=== PATIENT | female | born 2000 | race Caucasian/White ===

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

== ENCOUNTER 2019-01-18 14:39 | Inpatient (IN) ==
--- OUTSIDE RECORDS SUMMARY | 2019-01-18 17:06 | External Medical Summary | Continuity of Care Document ---
:2000 Author Name Mike Johnston, Provider Address Unavailable Unavailable , Care Team Providers Name Role Phone Edgar Johnston, Bogdan Ann Unavailable [email or web address] Thiago Johnston Unavailable [email or web address] Rashawn GALLO Unavailable Unavailable Unavailable Unavailable Unavailable Problems Migraines (346.90) (G43.909) Post term over 40 weeks (645.10) (O48.0) Diet controlled gestational diabetes shant litus in third trimester (648.83) (O24.410) Supervision of young multigravida in third trimester (V23.84 ) (O09.623) Allergies and Adverse Reactions No Known Drug Allergies (Allergy) Medications Albuterol AERS Refills: 0 Dulera AERO Refills: 0 Pre- TABS Refills: 0 Ketostix In Vitro Strip; USE DIRECTED. Vickie Hernández Aug S. Start: 28-Jun-2017 Quantity: 1 100 Strip Box Refills: 11 OneTouch Delica Lancets Fine; Check 4x a day. Vickie Hernández Aug S. Start: 28-Jun-2017 Quantity: 1 100 Unit Box Refills: 5 OneTouch Verio In Vitro Strip; Check 4 x a day Nohemi Hernández Aug S. Start: 28-Jun-2017 Quantity: 3 50 Strip Box Refills: 5 Procedures Procedures not documented Immunizations Fluzone Quadrivalent 0.5 ML Intramuscular Suspension On: Apr-2017 11:41 Lot #: [id number], SANOFI PASTEUR Tdap (Adacel) On: 17-May-2017 13:52 Lot #: [id number], SANOFI PASTEUR Family History Mother Family history of thyroid disease (V18.19) (Z83.49) Status: Active Sister Family history of endometriosis (V19.8) (Z84.2) Status: Acti ve Unknown Family Member Family history of Down syndrome (V19.5) (Z82.79) Status: Act judy Comments: Other Plan of Treatment Planned Observations Planned Goals not documented Results No Known Results Results not documented Encounters Appointment; Lucia Rhoades M.D. 27-Sep-2017 14:00 Encounter Diagnosis: Problem not documented Appointment; OB SC1, Nonstress Test 09-Aug-2017 13:00 Encounter Diagnosis: Problem not documented Appointment; OB SC1, Nonstress Test 05-Aug-2017 9:00 Encounter Diagnosis: Problem not documented Appointment; Bobbi Das M.D. 03-Aug-2017 9:30 Encounter Diagnosis: Problem not documented Appointment; OB SC1, Nonstress Test 03-Aug-2017 9:00 Encounter Diagnosis: Problem not documented Appointment; Evin Frenandez M.D. 26-Jul-2017 10:20 Encounter Diagnosis: Problem not documented Appointment; James Knapp M.D. 20-Jul-2017 10:40 Encounter Diagnosis: Problem not documented Appointment; OBGYParvin WELSH2, Ultrasound 20-Jul-2017 10:00 Encounter Diagnosis: Problem not documented Appointment; James Knapp M.D. 14-Jul-2017 11:00 Encounter Diagnosis: Problem not documented Appointment; OBGYN ANITHA1, Ultrasound 14-Jul-2017 10:15 Encounter Diagnosis: Problem not documented Appointment; Evin Fernandez M.D. 07-Jul-2017 8:50 Encounter Diagnosis: Problem not documented Appointment; OBVIVIANA WELSH2, Ultrasound 07-Jul-2017 8:30 Encounter Diagnosis: Problem not documented Appointment; Elmira Covarrubias R.D. 28-Jun-2017 14:00 Encounter Diagnosis: Problem not documented Appointment; Adrianne Desai M.D. 28-Jun-2017 11:30 Encounter Diagnosis: Problem not documented Appointment; OB SC1, Nonstress Test 28-Jun-2017 11:00 Encounter Diagnosis: Problem not documented Appointment; James Knapp M.D. 14-Jun-2017 10:30 Encounter Diagnosis: Problem not documented Appointment; OBGYParvin WELSH1, Ultrasound 14-Jun-2017 10:15 Encounter Diagnosis: Problem not documented Appointment; Bobbi Das M.D. 02-Jun-2017 11:20 Encounter Diagnosis: Problem not documented Appointment; Susie Devine DO 17-May-2017 11:20 Encounter Diagnosis: Problem not documented Appointment; James Knapp M.D. 19-Apr-2017 11:20 Encounter Diagnosis: Problem not documented Appointment; Lucia Rhoades M.D. 22-Mar-2017 11:50 Encounter Diagnosis: Problem not documented Appointment; OBGYParvin SC1, Ultrasound 22-Mar-2017 11:00 Encounter Diagnosis: Problem not documented Appointment; James Knapp M.D. 17-Feb-2017 8:30 Encounter Diagnosis: Problem not documented Appointment; Lucia Rhoades M.D. 07-Feb-2017 12:20 Encounter Diagnosis: Problem not documented Appointment; Bobbi Das M.D. 10-Oct-2017 9:10 Encounter Diagnosis: Problem not documented
[2019-01-18] MEDS ORDERED: ONDANSETRON INJ 2 MG/ML 2 ML VIAL IV PRN (17:36)
[2019-01-18] MEDS ORDERED: ALUMINUM/MAGNESIUM SUSP 30 ML UDC PO PRN (17:36)
[2019-01-18] MEDS ORDERED: VANCOMYCIN CONSULT ACTIVE PRN (17:39)
[2019-01-18] MEDS ORDERED: VANCOMYCIN HCL 1,000 MG in SODIUM CHLORIDE 0.9% 250 ML IV SCH (17:45)
--- NOTE | 2019-01-18 18:02 | History & Physical Report ---
Date of Service January 18, 2019 Assessment & Plan (1) Pneumonia: This could be hospital-acquired due to her recent stay at [facility]. She will be treated with cefepime and vancomycin. She has not producing any sputum for culture. Present on Admission?: Yes (2) Status asthmaticus: Switch nebulizer treatments to arformoterol and budesonide. Continue intravenous Solu-Medrol. Consult pulmonary medicine Present on Admission?: Yes (3) Depression: Resume previous medications at discharge (4) DVT prophylaxis: Lovenox subcu History of Present Illness Chief Complaint: Nonproductive cough, wheezing Primary Care Provider: NO PCP 18-year-old female with asthma hospitalized at [facility] on January 15 with status asthmaticus and suspected bronchitis. She was initially treated with a azithromycin and switch to Levaquin and doxycycline. She has not producing any sputum and sputum culture was not done. She did not improve and she had a CT scan today which was negative for PE but shows evidence of infiltrate in the left lingula area and left lower lobe. This could be hospital-acquired pneumonia. Family requested transfer to [facility] for further care. Pulmonary medicine consultation will be requested and she will be treated with cefepime and vancomycin. Nebulizer treatments will be switched to arformoterol and budesonide. She will continue with intravenous Solu-Medrol. It is assumed her leukocytosis is due to steroid therapy. She is not hypoxic on room air but remains on low-flow oxygen by nasal cannula. 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 Beliefs That Will Affect Care: None Current Living Situation: Family Other Information That Helps Us Care for You: No Feels Safe at Home: Yes Smoking Status: Never smoker Do You Dip or Chew Tobacco: No Second Hand Ex posure: No Hx Alcohol Use: No Hx Substance Use: No Review of Systems Review of Systems: Constitutional-no fever or chills ENT-no blurred vision, no double vision, no epistaxis, no sore throat Respiratory-nonproductive cough, wheezing, shortness of breath Cardiac-no palpitations, no chest pain, no syncope GI-no nausea, vomiting, diarrhea, melena, hematochezia -no urinary retention, no urinary incontinence, no dysuria, no hematuria Musculoskeletal-no joint pain, no muscle tenderness Skin-no bruising, no rashes, no pruritus Neuro-no isolated weakness, no paresthesia, no weakness Psych-no depression, no anxiety Physical Exam Physical Exam: General-alert and oriented x3, no fevers, no chills HEENT-head atraumatic and normocephalic, TMs intact bilaterally, pupils equal and reactive to light, extraocular muscles intact Neck-no lymphadenopathy or thyromegaly, trachea midline Chest-scattered bilateral rhonchi. End expiratory wheezes bilaterally. No dullness to percussion Cardiac-regular rate and rhythm, normal S1 and S2, no murmurs Abdomen-normal bowel sounds, nontender, no hepatosplenomegaly Extremities-no cyanosis, clubbing, or edema Neuro-cranial nerves II through XII intact, motor and sensory function within normal limits, strength symmetrical 5/5, no focal deficits Psych-normal affect, normal mood Results & Data Vital Signs (Past 12 Hours) Vital Signs Temp Pulse Resp BP Pulse Ox 01/18/19 16:59 36.8 C 88 24 128/84 95 PG Care Time/CCT Total # of Minutes Spent Total Time Spent with Patient: Total time spent is greater than 50% in coordination of care (as documented) at patient's floor/unit and/or counseling patient:
[2019-01-18] MEDS ORDERED: VANCOMYCIN HCL 1,750 MG in SODIUM CHLORIDE 0.9% 500 ML IV SCH (18:15)
[2019-01-18] MEDS: methylPREDNISolone 40 MG in SYRINGE 0 ML IV SCH (18:18)
[2019-01-18] MEDS: CEFEPIME 1,000 MG in SYRINGE 0 ML IV SCH (18:18)
[2019-01-18 18:44] LABS: Creatinine Clr Calc Pharmacy 113.9 ml/min; Est GFR (African American) 135.2; Est GFR (Non-African American) 116.6
[2019-01-18] MEDS: ARFORMOTEROL TART 15MCG/2ML VIAL INH SCH (19:05)
[2019-01-18] MEDS: BUDESONIDE 0.5 MG/2 ML VIAL (PULMICORT) NEB SCH (19:05)
[2019-01-18] MEDS: ACETAMINOPHEN 325 MG TAB PO PRN (19:48)
--- NOTE | 2019-01-18 20:51 | Pharmacy Report ---
Pharmacy Abx Initial Consult - Date of Service January 18, 2019 - Pharmacy Dosing Scope Date of Consult: 01/18/19 Consultation requested by: Dr. Green Pharmacy is consulted to initiate Vancomycin IV dosing therapy, order appropriate labs and adjust drug dose/frequency. - Subjective The patient is a 18 year old F admitted on 01/18/19 17:01. - Objective Height: 5 ft 3 in Weight: 70.1 kg (BMI 1.77) Vital Signs (Past 12hrs): Vital Signs Temp Pulse Pulse Resp BP BP Pulse Ox 01/18/19 19:08 74 20 96 01/18/19 19:00 81 24 114/77 96 01/18/19 18:50 36.8 C 83 18 114/77 96 01/18/19 18:00 01/18/19 16:59 36.8 C 88 24 128/84 95 Pulse Ox 01/18/19 19:08 01/18/19 19:00 01/18/19 18:50 01/18/19 18:00 94 01/18/19 16:59 Lab Results (24hrs): Laboratory Tests (24 Hours) 01/18/19 18:03 Creatinine 0.74 Est Cr Clr Drug Dosing 113.9 - Risk Factors for Resistance * Hospitalization for 48 hours or more within the past 90 days * Antimicrobial use within the last 90 days Zithromax/Levaquin/Doxycycline - Assessment & Plan Assessment 18 year old F with asthma admitted @ [facility] 01/15/19 with status asthmaticus and suspected bronchitis. Initially treated with with Zithromax then switched to Levaquin and Doxycycline. Has not been producing any sputum so sputum culture was not done. She was not improving so family requested transfer to [facility]. CT today shows evidence of infiltrate in left lingula area and left lower lobe. Questionable hospital acquired pneumonia Plan Vancomcyin for treatment of Pneumonia Vancomycin IV * Estimated PK Parameters: Vd 0.7 L/kg, Felton 0.098 hr-1, t1/2 7.1 hr * Loading dose: 1750 mg (~25 mg/kg) * Maintenance dose: 1000 mg IV (~ 14.3 mg/kg) every 8 hours * Goal trough level for pneumonia : 15 to 20 mcg/mL * Trough level ordered for 01/20/19 @ 0130 Pharmacy will continue to follow and will adjust dose/frequency as necessary. Thank you.
[2019-01-18 23:09] LABS: Hematocrit (blood only) 34.7 % (37-47); Hemoglobin 11.3 g/dL (12.0-16.0); Mean Corpuscular Hgb Conc 32.6 g/dL (32-36); Mean Corpuscular Volume 84.2 fL (80-100); Mean Platelet Volume 10.1 fL (7.4-10.4); Platelet Count 289 K/uL (130-400); RDW Coefficient of Variation 14.2 % (11.5-14.5); RDW Standard Deviation 44.2 fL (36.4-46.3); Red Blood Count 4.12 M/uL (4.2-5.4); White Blood Count 20.26 K/uL (4.8-10.8)
[2019-01-18 23:21] LABS: INR 1.1 (0.9-1.1); Prothrombin Time 11.1 Seconds (9.0-12.0)
[2019-01-19] MEDS: VANCOMYCIN HCL 1,000 MG in SODIUM CHLORIDE 0.9% 250 ML IV SCH ×2 (01:41→09:36)
[2019-01-19] MEDS: CEFEPIME 1,000 MG in SYRINGE 0 ML IV SCH ×2 (01:41→09:29)
[2019-01-19] MEDS: methylPREDNISolone 40 MG in SYRINGE 0 ML IV SCH ×3 (01:41→18:12)
[2019-01-19] MEDS ORDERED: ALBUT/IPRATROP 3MG/0.5MG NEB 3 ML VIAL NEB STA (04:51)
--- NOTE | 2019-01-19 05:03 | Progress Note ---
Date of Service January 19, 2019 Subjective RN called regarding increased respiratory rate around 4:50am chart reviewed Pt evaluated: reported difficulty breathing EXAM: diminished breath sounds with diffuse rhonchi and mild expiratory wheezing appreciated, mild respiratory distress Plan: duoneb x 1 ordered; started on uriah Q4H duoneb treatments Results & Data Vital Signs (Past 12 Hours) Vital Signs Temp Pulse Pulse Resp BP BP Pulse Ox 01/19/19 04:57 67 28 H 99 01/19/19 04:42 36.5 C 66 30 H 110/67 95 01/18/19 23:02 36.7 C 76 16 105/65 98 01/18/19 20:00 81 01/18/19 19:08 74 20 96 01/18/19 19:00 81 24 114/77 96 01/18/19 18:50 36.8 C 83 18 114/77 96 01/18/19 18:00 Pulse Ox 01/19/19 04:57 01/19/19 04:42 01/18/19 23:02 01/18/19 20:00 01/18/19 19:08 01/18/19 19:00 01/18/19 18:50 01/18/19 18:00 94 PG Care Time/CCT Total # of Minutes Spent Total Time Spent with Patient: Total time spent is greater than 50% in coordination of care (as documented) at patient's floor/unit and/or counseling patient: Resident Activity Tracking Resident Involvement: Resident Care Provided Care Provided: Adult Hospital Medicine
[2019-01-19 06:11] LABS: Hematocrit (blood only) 35.6 % (37-47); Hemoglobin 11.3 g/dL (12.0-16.0); Mean Corpuscular Hgb Conc 31.7 g/dL (32-36); Mean Corpuscular Volume 84.2 fL (80-100); Mean Platelet Volume 10.1 fL (7.4-10.4); Platelet Count 286 K/uL (130-400); RDW Coefficient of Variation 14.2 % (11.5-14.5); Red Blood Count 4.23 M/uL (4.2-5.4); White Blood Count 18.65 K/uL (4.8-10.8)
[2019-01-19 06:36] LABS: Basophils # (auto) 0.03 K/uL (0-0.2); Basophils % (auto) 0.2 %; Eosinophils # (auto) 0.01 K/uL (0-0.5); Eosinophils % (auto) 0.1 %; Immature Granulocytes # (auto) 1.02 K/uL (0.00-0.02); Immature Granulocytes % (auto) 5.5 %; Lymphocytes # (auto) 1.51 K/uL (1.2-3.4); Lymphocytes % (auto) 8.1 %; Monocytes # (auto) 0.69 K/uL (0.11-0.59); Monocytes % (auto) 3.7 %; Neutrophils # (auto) 15.39 K/uL (1.4-6.5); Neutrophils % (auto) 82.4 %; RBC Morphology Unremarkable
[2019-01-19 06:40] LABS: BUN Creatinine Ratio 23.1 (10-20); Blood Urea Nitrogen 13 mg/dl (7-18); Calcium 8.4 mg/dl (8.5-10.1); Carbon Dioxide 27 mmol/L (21-32); Chloride 107 mmol/L (98-107); Creatinine Clr Calc Pharmacy 146.6 ml/min; Est GFR (African American) > 150.0; Est GFR (Non-African American) 132.7; Glucose 125 mg/dl (70-99); Sodium 139 mmol/L (136-145)
[2019-01-19] MEDS: ARFORMOTEROL TART 15MCG/2ML VIAL INH SCH ×2 (07:10→20:00)
[2019-01-19] MEDS: ALBUT/IPRATROP 3MG/0.5MG NEB 3 ML VIAL NEB SCH ×5 (07:10→23:26)
[2019-01-19] MEDS: BUDESONIDE 0.5 MG/2 ML VIAL (PULMICORT) NEB SCH (07:10)
[2019-01-19] MEDS ORDERED: PNEUMOCOCCAL POLYSACCHARIDES 25 MCG/0.5 ML VIAL/SYR IM ONE (08:00)
[2019-01-19] MEDS ORDERED: PNEUMOCOCCAL ADMINISTRATION CHARGE ONE (08:00)
[2019-01-19] MEDS: ENOXAPARIN INJ 40 MG/0.4 ML SYR SQ SCH (09:29)
[2019-01-19] MEDS: ACETAMINOPHEN 325 MG TAB PO PRN (09:35)
[2019-01-19] MEDS ORDERED: SODIUM CHLORIDE 0.9% 1000ML 1,000 ML IV SCH (10:30)
--- NOTE | 2019-01-19 11:09 | XRay Report ---
XR chest 2V routine CLINICAL HISTORY: pneumonia dyspnea COMPARISON STUDY: CT chest 01/17/2019 FINDINGS: Small parenchymal infiltrate posterior costophrenic angle. This potentially is within the r ight lower lobe. Mid and upper lungs are considered clear. Heart is top normal in terms of size. IMPRESSION: Small parenchymal infiltrate posterior costophrenic angle, most likely within the right lower lobe. The above report was generated using voice recognition software. It may contain grammatical, syntax or spelling errors. Electronically signed by: Abhijit Marie M.D. 01/19/2019 11:08 AM
--- NOTE | 2019-01-19 13:25 | Family Medicine Progress Note ---
Date of Service January 19, 2019 Assessment & Plan (1) Pneumonia: 18yo female with a Hx of mild-moderate asthma presenting as a transfer from [facility] after presenting in status asthmaticus, and was found to have a pneumonia. Pneumonia -repeat chest xray obtained: shows RLL infiltrate -treating for HAP with Cefepime 2g for 7 days -vanc stopped as pt MRSA negative. -will continue to monitor Asthma -stable -Pt requiring continued oxygen use -continue arfomoterol, budesonide and IV solumedrol -Singulair qhs added -Will continue to trend K+ due to albuterol use. -pulm consult appreciated Depression -Hold home meds DVT prophylaxis: Lovenox subQ FEN/GI: Regular, fluid bolus CODE STATUS: full Supervising Physician Co-Signing Physician Notes ATTENDING I saw the patient with the resident and confirmed the history and physical exam. I also spoke with the patient's father and reviewed OSH records to obtain collateral information. I also discussed care with pulmonary and critical care consultants. This morning, the patient is tachypnic and speaks in a soft voice, completing a full, albeit short sentence before pausing. Her HR is 70-80s lying down, but she becomes tachycardic when she sits up for the lung exam. She is afebrile. SPO2 around 96-98% on 2 lpm NC. No cough appreciated. She has fair air exchange, with end-exp wheeze. Upon re-examination later today, her work of breathing is increased. She has increased dyspnea with conversation. After discussion with pulmonary medicine, the decision is made to move the patient to the ICU. Asthma, acute flare Increase steroids. Rocephin and Zithromax Continue Nebs Transfer to ICU Tachycardia Given recent history, suspect she is moderately volume depleted IVF added this morning Subjective Pt states she has had asthma all her life, with dad present in the room stating that she would have exacerbations about 2 times max a year. Has never been intubated or hospitalized but has made previous ED visits where her symptoms would improve after administration of steroids. Has a history of alergic rhinitis currently as well as 2 young children at home who are currently sick. Denies recent travel. Has previously managed her asthma with just albuterol before. Has significant SOB today both at rest and with exertion, some chest pain, nausea, palpitations, no fevers however. Review of Systems Review of Systems: All systems reviewed & are unremarkable except as noted in HPI & below Physical Exam Physical Exam: General: Alert, oriented. Mild distress. HEENT: NC/AT, PERRLA, EOMI, oropharynx moist. NC in nares Chest: Nontender to palpation. CV: RRR, Normal s1, s2. No murmurs appreciated Resp: Breath sounds coarse bilaterally but with good air movement. No wheezing appreciated. Abdomen: Soft, nontender, nondistended. No guarding. No organomegaly appreciated. Extremities: No edema. Results & Data Vital Signs (Past 12 Hours) Vital Signs Temp Pulse Resp BP Pulse Ox 01/19/19 07:38 36.6 C 78 17 108/51 L 95 01/19/19 07:12 62 18 98 01/19/19 04:57 67 28 H 99 01/19/19 04:42 36.5 C 66 30 H 110/67 95 01/18/19 23:02 36.7 C 76 16 105/65 98 Laboratory Results Laboratory Results - last 24 hr 01/18/19 01/18/19 01/18/19 04:41 04:41 18:03 WBC 20.26 H RBC 4.12 L Hgb 11.3 L Hct 34.7 L MCV 84.2 MCH 27.4 MCHC 32.6 RDW Std Deviation 44.2 RDW Coeff of Kam 14.2 Plt Count 289 MPV 10.1 Immature Gran % (Auto) Neut % (Auto) Lymph % (Auto) [place] % (Auto) Eos % (Auto) Baso % (Auto) Immature Gran # (Auto) Neut # (Auto) Lymph # (Auto) [place] # (Auto) Eos # (Auto) Baso # (Auto) RBC Morphology PT 11.1 INR 1.1 Sodium Potassium Chloride Carbon Dioxide Anion Gap BUN Creatinine 0.74 Est Cr Clr Drug Dosing 113.9 Est GFR ( Amer) 135.2 Est GFR (Non-Af Amer) 116.6 BUN/Creatinine Ratio Glucose Calcium Nasal Screen MRSA (PCR) 01/18/19 01/19/19 01/19/19 18:30 05:57 05:57 WBC 18.65 H RBC 4.23 Hgb 11.3 L Hct 35.6 L MCV 84.2 MCH 26.7 MCHC 31.7 L RDW Std Deviation 44.0 RDW Coeff of Kam 14.2 Plt Count 286 MPV 10.1 Immature Gran % (Auto) 5.5 Neut % (Auto) 82.4 Lymph % (Auto) 8.1 [place] % (Auto) 3.7 Eos % (Auto) 0.1 Baso % (Auto) 0.2 Immature Gran # (Auto) 1.02 H Neut # (Auto) 15.39 H Lymph # (Auto) 1.51 [place] # (Auto) 0.69 H Eos # (Auto) 0.01 Baso # (Auto) 0.03 RBC Morphology Unremarkable PT INR Sodium 139 Potassium 4.0 Chloride 107 Carbon Dioxide 27 Anion Gap 5.0 BUN 13 Creatinine 0.58 L Est Cr Clr Drug Dosing 146.6 Est GFR ( Amer) > 150.0 Est GFR (Non-Af Amer) 132.7 BUN/Creatinine Ratio 23.1 H Glucose 125 H Calcium 8.4 L Nasal Screen MRSA (PCR) Negative Medications Administered Home Medications Sertraline HCl 50 mg PO QAM 30 Days #30 tab 08/11/17 [Rx Confirmed 01/18/19] albuterol sulfate 2 puff INHALATION QID PRN 01/18/19 [History Confirmed 01/18/19] topiramate [Topamax] 100 mg PO HS 01/18/19 [History Confirmed 01/18/19] Active Medications Acetaminophen (Tylenol) 650 mg PO Q4H PRN PRN Reason: Pain or Fever Stop: 02/17/19 17:35 Last Admin: 01/19/19 09:35 Dose: 650 mg Documented by: Al Hydrox/Mg Hydrox/Simethicone (Maalox) 15 ml PO Q4H PRN PRN Reason: Dyspepsia Stop: 02/17/19 17:35 Albuterol (Duoneb) 3 ml NEB Q4R YAN Stop: 02/18/19 07:59 Last Admin: 01/19/19 11:07 Dose: Not Given Documented by: Arformoterol Tartrate (Brovana Neb) 15 mcg INH BIDR YAN Stop: 02/17/19 19:59 Last Admin: 01/19/19 07:10 Dose: 15 mcg Documented by: Budesonide (Pulmicort Respules) 0.5 mg NEB BIDR YAN Stop: 02/17/19 19:59 Last Admin: 01/19/19 07:10 Dose: 0.5 mg Documented by: Enoxaparin Sodium (Lovenox) 40 mg SQ Q24H YAN Stop: 02/18/19 08:59 Last Admin: 01/19/19 09:29 Dose: 40 mg Documented by: Methylprednisolone 40 mg/ (Syringe) 0.64 mls @ 1.5 mls/min IV Q8H YAN Stop: 02/17/19 17:59 Last Admin: 01/19/19 09:32 Dose: 1.5 mls/min Documented by: Cefepime HCl 2,000 mg/ Syringe 22.6 mls @ 5.5 mls/min IV Q8H [facility]; Protocol Stop: 01/24/19 10:05 Montelukast Sodium (Singulair) 10 mg PO HS YAN Stop: 02/18/19 20:59 Ondansetron HCl (Zofran) 4 mg IV Q6H PRN PRN Reason: Nausea Stop: 02/17/19 17:35 Resident Activity Tracking Resident Involvement: Resident Care Provided Care Provided: Adult Hospital Medicine
--- NOTE | 2019-01-19 17:40 | Critical Care Consultation ---
Date of Consultation January 19, 2019 Assessment & Plan (1) Admitted to intensive care unit: Reason Critically Ill: Reanna is a 18 year old female with a history of asthma, migraines, seasonal allergies and depression who was transferred from [facility] on 01/18 due to status asthmaticus. She remains tachycardic and dyspneic at rest, and the ICU team was consulted for further management. Neuro: -no neurological deficits identified Cardiac: -no history of cardiac disease -sinus tachycardia -> likely secondary to status asthmaticus -> pt had CTA to rule out PE on 01/17 Respiratory: -status asthmaticus -> currently receiving arformoterol nebs BID, as well as duonebs q4h scheduled -> IV steroids increased to 80mg IV solumedrol q8h -> d/c budesonide nebs given systemic steroids -> appears markedly dyspneic on 2L of oxygen via nasal cannula -> bedside peak flow was 150 -> 2g of magnesium sulfate ordered -> consider NPPV if patient does not improve -pneumonia -> seen on CXR on 01/19 -> initially treated with cefepime and vancomycin. Vancomycin was d/kisha given negative MRSA swab. Will change abx from cefepime to rocephin & azithromycin, low concern for pseudomonal infection -> pulmonary following -> ordered legionella and mycoplasma titers GI: -regular diet ordered RENAL/LYTES: -creatinine normal at 0.58, electrolytes WNL : -no santacruz catheter in place ENDO: -no history of diabetes or thyroid disease -ICU hyperglycemic protocol ordered HEME: -H&H stable ID: -pneumonia -> seen in RLL on CXR -> continue IV rocephin and azithromycin -> elevated WCC on admission likely secondary to steroids LINES/IV ACCESS: PIV x2 CODE STATUS: FULL DVT PROPHYLAXIS: Lovenox 40mg SQ q24h Thank you for allowing us to participate in the care of this patient. Please refer to my attending physician's documentation for any further recommendations. (2) Pneumonia: (3) Status asthmaticus: (4) Depression: (5) DVT prophylaxis: Supervising Physician Co-Signing Physician Notes Dr. Casanova was resident physician during care of patient. I separately evaluated patient for dickey portions of the history and the exam. I was present during the critical portion of medical decision making, and I discussed the case with the resident. I generally agree with the findings and plan. Significantly decreased peak flow. Requiring supplemental oxygen. Diagnosis of status asthmaticus requiring multimodality approach including IV steroids with acute hypoxic respiratory failure I have personally spent 40 minutes of critical care time in the direct management of this patient. This is a life/limb threatening event. This includes time spent evaluating patient, direct bedside care, chart review, placing orders, interpretation of diagnostic studies, discussion with consultants, patient, and/or family members regarding treatment decisions, as well as other required patient management activities. This time is exclusive of all separately billable procedures, and teaching time and separate from and in addition to any other critical care service time. History of Present Illness Reason for Consultation: Status Asthmaticus Requesting Physician: Dr. Cortes Attending Physician: Dr. Krishnamurthy History of Present Illness Reanna is a 18 year old female with a history of asthma, migraines, seasonal allergies and depression who was transferred from [facility] on 01/18 due to status asthmaticus. Despite medical therapy, she remains tachycardic and is now dyspneic at rest, and therefore ICU team was consulted for further management. Reanna reports her symptoms began approximately one week ago with URI symptoms. She notes that 2 days prior to her presentation to [facility] on 01/15, she developed shortness of breath. She used her rescue inhaler at home, as well as nebulizers, but these did not improve her symptoms. She saw her PCP on the day of her admission who prescribed her a z-pack and a tapering course of prednisone. Later that day, she developed subjective fever, chills, vomiting x3, and felt her symptoms were overall worsening, prompting her to present to [facility]. Reanna states that her asthma is generally well controlled. She does not have a maintenance inhaler, and only requires the use of her albuterol inhaler every few weeks or so. At baseline, she states she does not have chest pressure or shortness of breath with exertion. She states she has never been hospitalized for an asthma exacerbation before, and has not required intubation for an exacerbation before. She states she has exacerbations once or twice a year, and would typically receive steroids from the emergency department for this. Her last exacerbation was approximately 6 months ago. At the time of my exam, she was markedly dyspneic at rest. She states she feels like her symptoms have worsened since she came into the hospital. She reports chest pressure, shortness of breath with conversation, wheezing, and difficulty sitting up or getting out of bed due to shortness of breath. She states she is coughing frequently, and that her cough is not productive. She denies any recent fever or chills. She is not a smoker. 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 Beliefs That Will Affect Care: None Current Living Situation: Family Other Information That Helps Us Care for You: No Feels Safe at Home: Yes Smoking Status: Never smoker Do You Dip or Chew Tobacco: No Second Hand Exposure: No Hx Alcohol Use: No Hx Substance Use: No Review of Systems Constitutional: + fatigue; no fever and no chills Respiratory: + cough, + dyspnea and + wheezing; no sputum production Cardiovascular: + chest pain (pressure more-so than pain), + dyspnea at rest and + dyspnea on exertion; no palpitations, no lightheadedness, no edema and no calf pain Gastrointestinal: no abdominal pain, no nausea, no vomiting and no change in bowel habits Genitourinary: no dysuria, no difficulty urinating and no urinary frequency Physical Exam Constitutional: WD/WN, vitals as above average body habitus and cooperative on 2L of oxygen via nasal cannula ENMT: external ear and nose normal, oropharynx normal Respiratory: + tachypneic; + not able to speak in complete sentence Auscultation: + diminished lung sounds and + wheezes dyspneic with conversation Cardiovascular: Rate/Rhythm: regular rhythm and + tachycardic (worsens with leaning forward) Vessels: radial pulses present Extremities: no calf tenderness and no pedal edema tenderness to palpation over left side of chest Gastrointestinal (Abdomen): Percussion/Palpation: abdomen soft; abdomen nontender, no guarding and abdomen not rigid Skin: no rashes, warm and dry Neurologic: moves all extremities and awake; no focal motor deficits Psychiatric: A+Ox3, euthymic affect Results & Data Vital Signs (Past 12 Hours) Vital Signs Temp Pulse Resp BP Pulse Ox 01/19/19 15:24 65 16 97 01/19/19 15:04 36.8 C 95 H 18 122/69 96 01/19/19 11:38 36.6 C 104 H 19 112/68 93 01/19/19 07:38 36.6 C 78 17 108/51 L 95 01/19/19 07:12 62 18 98 Resident Activity Tracking Resident Involvement: Resident Care Provided Care Provided: Adult Hospital Medicine
[2019-01-19] MEDS ORDERED: CEFEPIME 2,000 MG in SYRINGE 0 ML IV SCH (18:00)
[2019-01-19] MEDS: AZITHROMYCIN 500 MG in DEXTROSE 5% 250 ML IV SCH (20:28)
[2019-01-19] MEDS: MAGNESIUM SULFATE / D5W 1 GM/100 ML BAG IV SCH ×2 (20:29→20:45)
[2019-01-19] MEDS: MONTELUKAST SODIUM 10 MG TABLET PO SCH (22:06)
[2019-01-19] MEDS: methylPREDNISolone 80 MG in SYRINGE 0 ML IV SCH (22:06)
[2019-01-19] MEDS: cefTRIAXone SODIUM 1,000 MG in DEXTROSE 5% 50 ML IV SCH (22:06)
[2019-01-20] MEDS ORDERED: VANCOMYCIN TROUGH ONE (01:30)
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
[2019-01-20] MEDS: ALBUT/IPRATROP 3MG/0.5MG NEB 3 ML VIAL NEB SCH ×6 (03:51→23:10)
[2019-01-20 04:29] LABS: Hematocrit (blood only) 36.9 % (37-47); Mean Corpuscular Hgb Conc 32.5 g/dL (32-36); Mean Corpuscular Volume 83.5 fL (80-100); Platelet Count 284 K/uL (130-400); RDW Coefficient of Variation 13.8 % (11.5-14.5); RDW Standard Deviation 42.2 fL (36.4-46.3); Red Blood Count 4.42 M/uL (4.2-5.4); White Blood Count 17.24 K/uL (4.8-10.8)
[2019-01-20 04:45] LABS: BUN Creatinine Ratio 19.6 (10-20); Creatinine Clr Calc Pharmacy 130.8 ml/min; Est GFR (African American) 148.1; Est GFR (Non-African American) 127.8; Potassium 3.8 mmol/L (3.5-5.1)
[2019-01-20 04:56] LABS: Basophils # (auto) 0.05 K/uL (0-0.2); Basophils % (auto) 0.3 %; Immature Granulocytes # (auto) 1.56 K/uL (0.00-0.02); Lymphocytes # (auto) 1.75 K/uL (1.2-3.4); Lymphocytes % (auto) 10.2 %; Monocytes % (auto) 3.5 %; Neutrophils # (auto) 13.28 K/uL (1.4-6.5)
[2019-01-20] MEDS: methylPREDNISolone 80 MG in SYRINGE 0 ML IV SCH ×3 (05:46→21:04)
[2019-01-20] MEDS: ARFORMOTEROL TART 15MCG/2ML VIAL INH SCH ×2 (06:57→18:57)
--- NOTE | 2019-01-20 07:02 | XRay Report ---
XR chest 1V portable CLINICAL HISTORY: lingular pneumonia COMPARISON STUDY: Chest CT January 17, 2019. Chest radiograph January 19, 2019. FINDINGS: There is no pneumothorax. There are trace bilateral pleural effusions. Mild bibasilar opaci ties persist. There is no evidence for pulmonary edema. Cardiomediastinal silhouette is normal. IMPRESSION: No change in trace bilateral pleural effusions and bibasilar opacities which may reflect pneumonia or atelectasis. Electronically signed by: Rashid Haque M.D. 01/20/2019 7:01 AM
[2019-01-20] MEDS: ENOXAPARIN INJ 40 MG/0.4 ML SYR SQ SCH (08:31)
--- NOTE | 2019-01-20 09:50 | Critical Care Progress Note ---
Date of Service January 20, 2019 Assessment & Plan (1) Admitted to intensive care unit: Reason Critically Ill: Reanna is a 18 year old female with status asthmaticus Neuro: -no neurological deficits identified Cardiac: -no history of cardiac disease -sinus tachycardia: Improving -> likely secondary to status asthmaticus -> pt had CTA to rule out PE on 01/17 Respiratory: -status asthmaticus -> currently receiving arformoterol nebs BID, as well as duonebs q4h scheduled -Continue scheduled nebs -> IV steroids increased to 80mg IV solumedrol q8h -Continue steroids as given minimal improvement -> d/c budesonide nebs given systemic steroids -> appears markedly dyspneic on 2L of oxygen via nasal cannula -> bedside peak flow was approximately to 25 -> 2g of magnesium sulfate ordered -> consider NPPV if patient does not improve -pneumonia -> seen on CXR on 01/19 -> initially treated with cefepime and vancomycin. Vancomycin was d/kisha given negative MRSA swab. Will change abx from cefepime to rocephin & azithromycin, low concern for pseudomonal infection -> pulmonary following -> ordered legionella and mycoplasma titers GI: -regular diet ordered RENAL/LYTES: -creatinine normal at 0.58, electrolytes WNL : -no santacruz catheter in place ENDO: -no history of diabetes or thyroid disease -ICU hyperglycemic protocol ordered HEME: -H&H stable ID: -pneumonia -> seen in RLL on CXR -> continue IV rocephin and azithromycin -> elevated WCC on admission likely secondary to steroids LINES/IV ACCESS: PIV x2 Activity: Ad stefani. CODE STATUS: FULL DVT PROPHYLAXIS: Lovenox 40mg SQ q24h Patient still has an oxygen requirement and significant reactive airway disease with less than 50% of her expected peak flow. Subjectively improved from yesterday very minimally objectively improved continue high intensity treatments. I have personally spent 40 minutes of critical care time in the direct management of this patient. This is a life/limb threatening event. This includes time spent evaluating patient, direct bedside care, chart review, placing orders, interpretation of diagnostic studies, discussion with consultants, patient, and/or family members regarding treatment decisions, as well as other required patient management activities. This time is exclusive of all separately billable procedures, and teaching time and separate from and in addition to any other critical care service time. (2) Pneumonia: (3) Status asthmaticus: (4) Depression: (5) DVT prophylaxis: (6) Acute respiratory failure with hypoxia: Subjective Feels subjectively better than yesterday, desires to sit up and walk around, still dyspneic with moderate activity. Review of Systems Review of Systems: No chest pain, positive shortness of breath, negative nause a negative vomiting Physical Exam Physical Exam: General: Alert. nontoxic. Skin: Warm, dry, Head: Atraumatic Ears, nose, mouth and throat: airway patent Cardiovascular: Normal peripheral perfusion Respiratory: No accessory muscle use, no respiratory distress, significantly prolonged JEFFREY ratio Gastrointestinal: Non distended Musculoskeletal: No deformity Peak flows: 250, 150, 200 with good effort Results & Data Vital Signs (Past 12 Hours) Vital Signs Temp Pulse Pulse Resp BP BP Pulse Ox 01/20/19 09:13 124/58 L 01/20/19 09:00 93 H 17 95 01/20/19 08:00 36.7 C 93 H 37 H 96 01/20/19 07:00 86 23 99 01/20/19 06:00 64 14 101/44 L 98 01/20/19 04:00 36.5 C 78 19 116/60 97 01/20/19 03:51 72 16 95 01/20/19 02:00 62 17 100/60 96 01/20/19 00:00 36.6 C 68 17 103/53 L 95 01/19/19 23:26 83 18 97 01/19/19 23:01 67 21 101/50 L 97 01/19/19 23:00 61 19 97 01/19/19 22:01 83 19 116/75 97 01/19/19 22:00 86 20 97 Laboratory Results 01/20/19 01/20/19 01/20/19 Range/Units 06:45 04:11 04:11 WBC (4.8-10.8) K/uL RBC (4.2-5.4) M/uL Hgb (12.0-16.0) g/dL Hct (37-47) % MCV (80-100) fL MCH (25-34) pg MCHC (32-36) g/dL RDW Std Deviation (36.4-46.3) fL RDW Coeff of Kam (11.5-14.5) % Plt Count (130-400) K/uL MPV (7.4-10.4) fL Immature Gran % (Auto) % Neut % (Auto) % Lymph % (Auto) % [place] % (Auto) % Eos % (Auto) % Baso % (Auto) % Immature Gran # (Auto) (0.00-0.02) K/uL Neut # (Auto) (1.4-6.5) K/uL Lymph # (Auto) (1.2-3.4) K/uL [place] # (Auto) (0.11-0.59) K/uL Eos # (Auto) (0-0.5) K/uL Baso # (Auto) (0-0.2) K/uL Sodium 139 (136-145) mmol/L Potassium 3.8 (3.5-5.1) mmol/L Chloride 106 (98-107) mmol/L Carbon Dioxide 27 (21-32) mmol/L Anion Gap 6.0 (3-11) BUN 13 (7-18) mg/dl Creatinine 0.65 (0.6-1.2) mg/dl Est Cr Clr Drug Dosing 130.8 ml/min Est GFR ( Amer) 148.1 Est GFR (Non-Af Amer) 127.8 BUN/Creatinine Ratio 19.6 (10-20) Glucose 130 H (70-99) mg/dl Calcium 8.0 L (8.5-10.1) mg/dl Nasal Screen MRSA (PCR) (Negative) Vancomycin Trough 2.1 (See Comment) mcg/ml L.pneumophila IgM Ab Urine Legionella Ag Pending Mycoplasma pneumon IgG Mycoplasma pneumon IgM 01/20/19 01/19/19 01/19/19 Range/Units 04:11 20:18 18:50 WBC 17.24 H (4.8-10.8) K/uL RBC 4.42 (4.2-5.4) M/uL Hgb 12.0 (12.0-16.0) g/dL Hct 36.9 L (37-47) % MCV 83.5 (80-100) fL MCH 27.1 (25-34) pg MCHC 32.5 (32-36) g/dL RDW Std Deviation 42.2 (36.4-46.3) fL RDW Coeff of Kam 13.8 (11.5-14.5) % Plt Count 284 (130-400) K/uL MPV 10.0 (7.4-10.4) fL Immature Gran % (Auto) 9.0 % Neut % (Auto) 77.0 % Lymph % (Auto) 10.2 % [place] % (Auto) 3.5 % Eos % (Auto) 0.0 % Baso % (Auto) 0.3 % Immature Gran # (Auto) 1.56 H (0.00-0.02) K/uL Neut # (Auto) 13.28 H (1.4-6.5) K/uL Lymph # (Auto) 1.75 (1.2-3.4) K/uL [place] # (Auto) 0.60 H (0.11-0.59) K/uL Eos # (Auto) 0.00 (0-0.5) K/uL Baso # (Auto) 0.05 (0-0.2) K/uL Sodium (136-145) mmol/L Potassium (3.5-5.1) mmol/L Chloride (98-107) mmol/L Carbon Dioxide (21-32) mmol/L Anion Gap (3-11) BUN (7-18) mg/dl Creatinine (0.6-1.2) mg/dl Est Cr Clr Drug Dosing ml/min Est GFR ( Amer) Est GFR (Non-Af Amer) BUN/Creatinine Ratio (10-20) Glucose (70-99) mg/dl Calcium (8.5-10.1) mg/dl Nasal Screen MRSA (PCR) Negative (Negative) Vancomycin Trough (See Comment) mcg/ml L.pneumophila IgM Ab Pending Urine Legionella Ag Mycoplasma pneumon IgG Pending Mycoplasma pneumon IgM Pending (1) Status asthmaticus Asthma severity: severe Asthma persistence: unspecified Qualified Code(s): J45.902 - Unspecified asthma with status asthmaticus (2) Depression Depression Type: unspecified Qualified Code(s): F32.9 - Major depressive disorder, single episode, unspecified
--- NOTE | 2019-01-20 12:30 | Progress Note ---
DATE: 01/20/2019 PULMONARY MEDICINE PROGRESS NOTE Chart reviewed, patient examined, assessment. SUBJECTIVE: The patient seems better today, sleeping more comfortably. Her voice, although still in a whisper is much more audible and her peak flows according to the patient are in the 225 range. Yesterday they were below 100 and had great difficulty giving a peak flow. She has brought up some sputum. Pleuritic pain seemed less and her coughing, although persists, is less violent. OBJECTIVE: VITAL SIGNS: Blood pressure 109/63, pulse 83 and regular, respiratory rate 20, temperature 36.7, O2 sat 96% on 3 liters. SKIN: Without lesion. HEENT: Atraumatic, normocephalic. PERRLA. LUNGS: The patient is not using accessory musculature. There are some audible wheezes at the right posterior lung base and loud wheezes in the left mid axillary and posterior lung ewing with a hint of the egophony. CARDIAC: Regular rate and rhythm. No murmurs or gallops. ABDOMEN: Soft, protuberant. No evidence for hepatosplenomegaly. EXTREMITIES: No pedal edema, clubbing, or cyanosis. NEUROLOGIC: Intact. IMAGING DATA: Chest x-ray today shows some trace bilateral pleural effusions and bibasilar opacities. OTHER LABORATORY DATA: White count 17,000, H and H 12 and 36.9, BUN 13, creatinine 0.6. Rest of her chemistries unremarkable. Serologies are all pending. ASSESSMENT AND PLAN: A 18-year-old asthmatic with community-acquired pneumonitis more involving the lingula, left lower lobe, but right basilar infiltrate noted, with now trace bilateral pleural effusions. The patient appears and seems clinically improved, certainly not using the accessory muscles of respiration and her voice is slightly stronger with improved peak flows. Would continue current therapy, get out of bed and mobilize patient. She is tolerating the current neb treatments well.Seems well enough to transfer out of unit at this juncture. [facility]
--- NOTE | 2019-01-20 15:11 | Family Medicine Progress Note ---
Date of Service January 20, 2019 Assessment & Plan (1) Acute respiratory failure with hypoxia: 20June transfer from outside hospital: 18F with PMH mild-moderate asthma here with status asthmaticus, hypoxia and pneumonitis. Status asthmaticus, hypoxia, complicated by pneumonitis -concern for clinical deterioration and moved to ICU 21June -stable on 2-3L nasal cannula, stable CXR. Has not needed BiPAP or intubation this admission. -pulmonology consulted, appreciate recs: IgG/A/M/E, legionella, mycoplasma, aspergillus, and other serologies still pending. Mobilize patient. -peak flow improving however still less than 50% expected, continue to monitor. up to 200-225 21Jun (expected: 468L/min) -continue methylpred 80 q8h, duoneb q4r, arfomoterol 15 mcg BID, ceftriaxone/azithromycin, singulair FEN/GI: regular diet DVT ppx: lovenox q24h CODE STATUS: FULL DISPO: Discussed with specialist, mahesh to deescalate to tele floor. to home on discharge -- to follow up with [facility] pulmonology now that she is established. Other ongoing medical problems: Depression: continue sertraline, topamax (2) Status asthmaticus: (3) Pneumonia: Supervising Physician Co-Signing Physician Notes ATTENDING NOTE I saw the patient independently and performed a history and physical exam. I discussed the case with the resident physician and agree with the documentation in her progress note. Upon exam, the patient is seated in bed talking on her cell phone. She still exhibits significant conversational dyspnea, pausing every sentence; she is not using accessory muscles as she was last evening. She complains of continued shortness of breath with activity or conversation, though she feels a little better at rest compared to yesterday. Upon exam, her air exchange actually sounds improved compared to yesterday evening; there is still diffuse wheezing, although greater air movement. She remains afebrile. The mild tachycardia seen yesterday has improved. Pulse oximetry readings 96% and above on 3 L via nasal cannula Acute asthma Community-acquired pneumonia Continue IV steroids, Rocephin, and Zithromax Continue current respiratory therapies Monitor peak flows; I discussed with the patient the use of daily peak flows to predict and abort potential flares. She knows that she will have to be maintained on preventive medications/inhalers and follow with the mononitrotoluene operator as outpatient. Okay to return to telemetry floor today. Subjective seen and examined at the bedside. per nursing no acute events overnight. tolerating po. remains on 2-3 liter NC. endorses dyspnea on exertion and chest tightness. says cough and hoarseness is improving, is breathing somewhat easier. imaging and labs reviewed. Review of Systems Review of Systems: All systems reviewed & are unremarkable except as noted in HPI & below (does not endorse syncope or pre-syncope) Physical Exam Physical Exam: Vitals noted and within normal limits with the exception of hypoxia. GENERAL: Awake, alert to person, place, and time, nontoxic-appearing, in no distress HENT: Normocephalic, atraumatic. Nasal cannula in place. Mucus membranes appear moist. EYES: Normal conjunctiva. Sclera non-icteric. EOMI. NECK: Supple. Full range of motion. No JVD RESPIRATORY: Bilateral rhonchi and expiratory wheeze. Normal work of breathing. CARDIAC: Regular rate, normal rhythm. Extremities warm and well perfused. ABDOMEN: Soft, non-distended. NEURO: No focal gross focal motor deficits noted. CN II-XII grossly in tact. SKIN: Rash not present. No jaundice noted. Significant lesions not present. PSYCH: Appropriate mood and affect. Cooperative. Exam as done by Vickie Salas MD, [employer]. Results & Data Vital Signs (Past 12 Hours) Vital Signs Temp Pulse Pulse Resp BP BP Pulse Ox 01/20/19 12:00 82 16 116/63 96 01/20/19 11:19 83 20 96 01/20/19 11:01 79 21 110/63 96 01/20/19 11:00 94 H 23 96 01/20/19 10:02 94 H 22 94 01/20/19 10:01 69 22 109/63 94 01/20/19 10:00 85 20 94 01/20/19 09:21 103 H 32 H 93 01/20/19 09:13 124/58 L 01/20/19 09:00 93 H 17 95 01/20/19 08:00 36.7 C 93 H 37 H 96 01/20/19 07:00 86 23 99 01/20/19 06:00 64 14 101/44 L 98 01/20/19 04:00 36.5 C 78 19 116/60 97 01/20/19 03:51 72 16 95 Laboratory Results 01/20/19 01/20/19 01/20/19 Range/Units 11:50 11:50 11:50 WBC (4.8-10.8) K/uL RBC (4.2-5.4) M/uL Hgb (12.0-16.0) g/dL Hct (37-47) % MCV (80-100) fL MCH (25-34) pg MCHC (32-36) g/dL RDW Std Deviation (36.4-46.3) fL RDW Coeff of Kam (11.5-14.5) % Plt Count (130-400) K/uL MPV (7.4-10.4) fL Immature Gran % (Auto) % Neut % (Auto) % Lymph % (Auto) % [place] % (Auto) % Eos % (Auto) % Baso % (Auto) % Immature Gran # (Auto) (0.00-0.02) K/uL Neut # (Auto) (1.4-6.5) K/uL Lymph # (Auto) (1.2-3.4) K/uL [place] # (Auto) (0.11-0.59) K/uL Eos # (Auto) (0-0.5) K/uL Baso # (Auto) (0-0.2) K/uL Sodium (136-145) mmol/L Potassium (3.5-5.1) mmol/L Chloride (98-107) mmol/L Carbon Dioxide (21-32) mmol/L Anion Gap (3-11) BUN (7-18) mg/dl Creatinine (0.6-1.2) mg/dl Est Cr Clr Drug Dosing ml/min Est GFR ( Amer) Est GFR (Non-Af Amer) BUN/Creatinine Ratio (10-20) Glucose (70-99) mg/dl Calcium (8.5-10.1) mg/dl A.fumigatus Allerg IgG Pending Nasal Screen MRSA (PCR) (Negative) Vancomycin Trough (See Comment) mcg/ml IgG 831.0 (700-1600) mg/dl IgA 123.0 (70-400) mg/dl IgM 103.0 (40-230) mg/dl IgE Pending L.pneumophila IgM Ab Urine Legionella Ag Mycoplasma pneumon IgG Mycoplasma pneumon IgM Saccharo. viridis Ab Pending T. candidus Antibody Pending T. vulgaris Antibody Pending Aspergillus flavus Ab Pending Aspergill fumigatus Ab Pending Pending A. galactomannan Ag Pending A. galactomannan Ag Idx Pending Aspergillus niger Ab Pending Micropolyspora faeni Ab Pending [place] Serum Precipitin Pending Beta-(1,3)-D-Glucan Pending B-(1,3)-D-Glucan Intrp Pending 01/20/19 01/20/19 01/20/19 Range/Units 06:45 04:11 04:11 WBC (4.8-10.8) K/uL RBC (4.2-5.4) M/uL Hgb (12.0-16.0) g/dL Hct (37-47) % MCV (80-100) fL MCH (25-34) pg MCHC (32-36) g/dL RDW Std Deviation (36.4-46.3) fL RDW Coeff of Kam (11.5-14.5) % Plt Count (130-400) K/uL MPV (7.4-10.4) fL Immature Gran % (Auto) % Neut % (Auto) % Lymph % (Auto) % [place] % (Auto) % Eos % (Auto) % Baso % (Auto) % Immature Gran # (Auto) (0.00-0.02) K/uL Neut # (Auto) (1.4-6.5) K/uL Lymph # (Auto) (1.2-3.4) K/uL [place] # (Auto) (0.11-0.59) K/uL Eos # (Auto) (0-0.5) K/uL Baso # (Auto) (0-0.2) K/uL Sodium 139 (136-145) mmol/L Potassium 3.8 (3.5-5.1) mmol/L Chloride 106 (98-107) mmol/L Carbon Dioxide 27 (21-32) mmol/L Anion Gap 6.0 (3-11) BUN 13 (7-18) mg/dl Creatinine 0.65 (0.6-1.2) mg/dl Est Cr Clr Drug Dosing 130.8 ml/min Est GFR ( Amer) 148.1 Est GFR (Non-Af Amer) 127.8 BUN/Creatinine Ratio 19.6 (10-20) Glucose 130 H (70-99) mg/dl Calcium 8.0 L (8.5-10.1) mg/dl A.fumigatus Allerg IgG Nasal Screen MRSA (PCR) (Negative) Vancomycin Trough 2.1 (See Comment) mcg/ml IgG (700-1600) mg/dl IgA (70-400) mg/dl IgM (40-230) mg/dl IgE L.pneumophila IgM Ab Urine Legionella Ag Pending Mycoplasma pneumon IgG Mycoplasma pneumon IgM Saccharo. viridis Ab T. candidus Antibody T. vulgaris Antibody Aspergillus flavus Ab Aspergill fumigatus Ab A. galactomannan Ag A. galactomannan Ag Idx Aspergillus niger Ab Micropolyspora faeni Ab [place] Serum Precipitin Beta-(1,3)-D-Glucan B-(1,3)-D-Glucan Intrp 01/20/19 01/19/19 01/19/19 Range/Units 04:11 20:18 18:50 WBC 17.24 H (4.8-10.8) K/uL RBC 4.42 (4.2-5.4) M/uL Hgb 12.0 (12.0-16.0) g/dL Hct 36.9 L (37-47) % MCV 83.5 (80-100) fL MCH 27.1 (25-34) pg MCHC 32.5 (32-36) g/dL RDW Std Deviation 42.2 (36.4-46.3) fL RDW Coeff of Kam 13.8 (11.5-14.5) % Plt Count 284 (130-400) K/uL MPV 10.0 (7.4-10.4) fL Immature Gran % (Auto) 9.0 % Neut % (Auto) 77.0 % Lymph % (Auto) 10.2 % [place] % (Auto) 3.5 % Eos % (Auto) 0.0 % Baso % (Auto) 0.3 % Immature Gran # (Auto) 1.56 H (0.00-0.02) K/uL Neut # (Auto) 13.28 H (1.4-6.5) K/uL Lymph # (Auto) 1.75 (1.2-3.4) K/uL [place] # (Auto) 0.60 H (0.11-0.59) K/uL Eos # (Auto) 0.00 (0-0.5) K/uL Baso # (Auto) 0.05 (0-0.2) K/uL Sodium (136-145) mmol/L Potassium (3.5-5.1) mmol/L Chloride (98-107) mmol/L Carbon Dioxide (21-32) mmol/L Anion Gap (3-11) BUN (7-18) mg/dl Creatinine (0.6-1.2) mg/dl Est Cr Clr Drug Dosing ml/min Est GFR ( Amer) Est GFR (Non-Af Amer) BUN/Creatinine Ratio (10-20) Glucose (70-99) mg/dl Calcium (8.5-10.1) mg/dl A.fumigatus Allerg IgG Nasal Screen MRSA (PCR) Negative (Negative) Vancomycin Trough (See Comment) mcg/ml IgG (700-1600) mg/dl IgA (70-400) mg/dl IgM (40-230) mg/dl IgE L.pneumophila IgM Ab Pending Urine Legionella Ag Mycoplasma pneumon IgG Pending Mycoplasma pneumon IgM Pending Saccharo. viridis Ab T. candidus Antibody T. vulgaris Antibody Aspergillus flavus Ab Aspergill fumigatus Ab A. galactomannan Ag A. galactomannan Ag Idx Aspergillus niger Ab Micropolyspora faeni Ab [place] Serum Precipitin Beta-(1,3)-D-Glucan B-(1,3)-D-Glucan Intrp Medications Administered Current Inpatient Medications Acetaminophen (Tylenol) 650 mg PO Q4H PRN PRN Reason: Pain or Fever Stop: 02/17/19 17:35 Last Admin: 01/19/19 09:35 Dose: 650 mg Documented by: Al Hydrox/Mg Hydrox/Simethicone (Maalox) 15 ml PO Q4H PRN PRN Reason: Dyspepsia Stop: 02/17/19 17:35 Albuterol (Duoneb) 3 ml NEB Q4R YAN Stop: 02/18/19 07:59 Last Admin: 01/20/19 15:49 Dose: 3 ml Documented by: Arformoterol Tartrate (Brovana Neb) 15 mcg INH BIDR YAN Stop: 02/17/19 19:59 Last Admin: 01/20/19 06:57 Dose: 15 mcg Documented by: Enoxaparin Sodium (Lovenox) 40 mg SQ Q24H YAN Stop: 02/18/19 08:59 Last Admin: 01/20/19 08:31 Dose: 40 mg Documented by: Methylprednisolone 80 mg/ (Syringe) 1.28 mls @ 1.5 mls/min IV Q8 YAN Stop: 02/18/19 21:59 Last Admin: 01/20/19 14:10 Dose: 1.5 mls/min Documented by: Azithromycin 500 mg/ Dextrose 255 mls @ 125 mls/hr IV Q24H YAN Stop: 01/26/19 18:59 Last Infusion: 01/19/19 22:40 Dose: Infused Documented by: Ceftriaxone Sodium 1,000 mg/ (Dextrose) 50 mls @ 100 mls/hr IV Q24H [facility]; Protocol Stop: 01/26/19 20:59 Last Infusion: 01/19/19 22:40 Dose: Infused Documented by: Magnesium Oxide (Mag-Ox) 400 mg PO PM YAN Stop: 02/19/19 20:59 Montelukast Sodium (Singulair) 10 mg PO HS YAN Stop: 02/18/19 20:59 Last Admin: 01/19/19 22:06 Dose: 10 mg Documented by: PG Care Time/CCT Total # of Minutes Spent Total Time Spent with Patient: Total time spent is greater than 50% in coordination of care (as documented) at patient's floor/unit and/or counseling patient: Resident Activity Tracking Resident Involvement: Resident Care Provided Care Provided: Adult Hospital Medicine (1) Status asthmaticus Asthma persistence: unspecified Asthma severity: severe Qualified Code(s): J45.902 - Unspecified asthma with status asthmaticus
[2019-01-20] MEDS ORDERED: ALBUTEROL HFA 8 GM INHALER INH PRN (19:05)
[2019-01-20] MEDS: AZITHROMYCIN 500 MG in DEXTROSE 5% 250 ML IV SCH (19:32)
[2019-01-20] MEDS: MAGNESIUM OXIDE 400 MG TAB PO SCH (21:03)
[2019-01-20] MEDS: TOPIRAMATE 100 MG TAB PO SCH (21:03)
[2019-01-20] MEDS: MONTELUKAST SODIUM 10 MG TABLET PO SCH (21:03)
[2019-01-20] MEDS: cefTRIAXone SODIUM 1,000 MG in DEXTROSE 5% 50 ML IV SCH (21:04)
[2019-01-20] MEDS: SERTRALINE HCL 50 MG TABLET PO SCH (21:04)
[2019-01-21] MEDS: ALBUT/IPRATROP 3MG/0.5MG NEB 3 ML VIAL NEB SCH ×6 (03:51→23:08)
[2019-01-21 06:42] LABS: Hematocrit (blood only) 37.2 % (37-47); Hemoglobin 11.9 g/dL (12.0-16.0); Mean Corpuscular Volume 84.4 fL (80-100); Mean Platelet Volume 9.9 fL (7.4-10.4); Platelet Count 298 K/uL (130-400); RDW Coefficient of Variation 13.7 % (11.5-14.5); RDW Standard Deviation 42.3 fL (36.4-46.3); Red Blood Count 4.41 M/uL (4.2-5.4); White Blood Count 20.97 K/uL (4.8-10.8)
[2019-01-21] MEDS: methylPREDNISolone 80 MG in SYRINGE 0 ML IV SCH ×3 (06:45→20:52)
[2019-01-21] MEDS: ARFORMOTEROL TART 15MCG/2ML VIAL INH SCH ×2 (06:56→18:49)
[2019-01-21 07:12] LABS: BUN Creatinine Ratio 18.8 (10-20); Blood Urea Nitrogen 11 mg/dl (7-18); Calcium 8.8 mg/dl (8.5-10.1); Carbon Dioxide 24 mmol/L (21-32); Chloride 108 mmol/L (98-107); Creatinine Clr Calc Pharmacy 145.5 ml/min; Est GFR (African American) > 150.0; Est GFR (Non-African American) 132.7; Glucose 122 mg/dl (70-99); Potassium 3.9 mmol/L (3.5-5.1); Sodium 140 mmol/L (136-145)
[2019-01-21 07:38] LABS: Basophils # (auto) 0.09 K/uL (0-0.2); Basophils % (auto) 0.4 %; Eosinophils # (auto) 0.01 K/uL (0-0.5); Immature Granulocytes # (auto) 1.87 K/uL (0.00-0.02); Immature Granulocytes % (auto) 8.9 %; Lymphocytes # (auto) 1.46 K/uL (1.2-3.4); Monocytes # (auto) 0.96 K/uL (0.11-0.59); Monocytes % (auto) 4.6 %; Neutrophils # (auto) 16.58 K/uL (1.4-6.5); Neutrophils % (auto) 79.1 %
[2019-01-21] MEDS ORDERED: ONDANSETRON INJ 2 MG/ML 2 ML VIAL IV PRN (08:35)
[2019-01-21] MEDS: ENOXAPARIN INJ 40 MG/0.4 ML SYR SQ SCH (09:45)
--- NOTE | 2019-01-21 10:18 | Progress Note ---
DATE: 01/21/2019 SUBJECTIVE: The patient is definitely better today. Her voice is stronger. Her peak flows are reportedly in the 300-350 range and she has a smile on her face and feels less air hungry. Sputum production is minimal. No pleuritic pain. OBJECTIVE: CURRENT VITAL SIGNS: Blood pressure 103/59, pulse 76 and regular, respiratory rate 17, temperature 36.7, O2 sat 96% on room air. SKIN: Without lesion. HEENT: Atraumatic, normocephalic. PERRLA. LUNGS: Wheezes are heard at the left posterior lung field, but better air entry as well as at the right base where occasional musical wheezes noted. CARDIAC: Regular rate and rhythm. I do not appreciate a gallop. ABDOMEN: Soft, protuberant. EXTREMITIES: No pedal edema, clubbing or cyanosis. LABORATORY DATA: Chest x-ray is stable with trace bilateral pleural effusions and bibasilar opacities. White count 20,000, but the patient is on high dose steroid therapy. The rest of the labs; IgG is within normal limits. Other serologies are pending including a panel of hypersensitivity pneumonitis. Overall, the patient is doing much better. She was transferred back to the NICU. OVERALL ASSESSMENT: A 18-year-old asthmatic, presents with status asthmaticus and left greater than right pneumonitis with marked improvement. Would taper his steroid therapy, mobilize her to walk in the hallway. I do believe there is a degree of mucous plugging and hopefully should be able to improve on that with pulmonary toilet and current aerosolized bronchodilator. MTDD
--- NOTE | 2019-01-21 11:21 | Family Medicine Progress Note ---
Date of Service January 21, 2019 Assessment & Plan (1) Acute respiratory failure with hypoxia: 20June transfer from outside hospital: 18F with PMH mild-moderate asthma here with status asthmaticus, hypoxia and pneumonitis. Status asthmaticus, hypoxia, complicated by pneumonitis -concern for clinical deterioration and moved to ICU 21June -stable on 2-3L nasal cannula, stable CXR. Has not needed BiPAP or intubation this admission. -pulmonology consulted, appreciate recs: IgG/A/M/E, legionella, mycoplasma, aspergillus, and other serologies still pending. Mobilize patient. -peak flow improving continue to monitor BID. up to 400 on 23Jun (goal/expected: 468L/min) -continue duoneb q4r, arfomoterol 15 mcg BID, ceftriaxone/azithromycin, singulair -taper IV methylpred 80 q8h --> to BID for 24Jun, then recommend taper on discharge (i.e.)of 60mg pred daily x 3, then 40 mg pred x 3, then 20mg pred x 3, then 10mg pred x 3d then stop. 23June - on room air, improving, taper as above. FEN/GI: regular diet DVT ppx: lovenox q24h CODE STATUS: FULL DISPO: tele floor. to home on discharge -- to follow [place] [facility] [place] now that she is established. Other ongoing medical problems: Depression: continue sertraline, topamax (2) Status asthmaticus: (3) Pneumonia: Supervising Physician Co-Signing Physician Notes ATTENDING NOTE I saw the patient independently and performed a history and physical exam. I discussed the case with the resident physician and agree with the documentation in her progress note. She feels much better this morning. She tells me that sometime late yesterday evening and overnight she began to feel that is much easier to catch her breath. She is coughing a little more this morning and has been able to expectorate some clear phlegm. He is able to talk in full consecutive sentences without pausing. Her peak flows are now above 300, a noted improvement compared to yesterday. Upon exam, she still has diffuse expiratory wheezing but much improved air movement compared to yesterday. Acute asthma Community-acquired pneumonia Continue IV steroids, Rocephin, and Zithromax Continue current respiratory therapies Taper IV steroids and consider conversion to oral prednisone tomorrow if she continues to improve Monitor peak flows She knows that she will have to be maintained on preventive medications/inhalers and follow with the contracting engineer as outpatient. Depression Restart home dose of sertraline Migraine headaches Restart home dose of Topamax Subjective breathing improved this am. per RT, peak flow at 400, improved. on room air. still not speaking in full sentences, but subjectively feeling better. no acute events overnight. tolerating po. Review of Systems Review of Systems: All systems reviewed & are unremarkable except as noted in HPI & below Physical Exam Physical Exam: Vitals noted and within normal limits. No longer hypoxic. GENERAL: Awake, alert to person, place, and time, nontoxic-appearing, in no distress HENT: Normocephalic, atraumatic. Mucus membranes appear moist. EYES: Normal conjunctiva. Sclera non-icteric. EOMI. NECK: Supple. Full range of motion. No JVD RESPIRATORY: Improved bilateral rhonchi and expiratory wheeze. Normal work of breathing. CARDIAC: Regular rate, normal rhythm. Extremities warm and well perfused. ABDOMEN: Soft, non-distended. NEURO: No focal gross focal motor deficits noted. CN II-XII grossly in tact. SKIN: Rash not present. No jaundice noted. Significant lesions not present. PSYCH: Appropriate mood and affect. Cooperative. Exam as done by Vickie Salas MD, Employment Specialist. Results & Data Vital Signs (Past 12 Hours) Vital Signs Temp Pulse Resp BP Pulse Ox 01/21/19 11:05 95 H 16 97 01/21/19 07:34 36.7 C 76 17 103/59 L 96 01/21/19 06:56 71 16 99 01/21/19 03:51 63 16 98 01/21/19 03:48 36.7 C 56 L 18 107/58 L 99 Laboratory Results 01/21/19 01/21/19 Range/Units 06:13 06:13 WBC 20.97 H (4.8-10.8) K/uL RBC 4.41 (4.2-5.4) M/uL Hgb 11.9 L (12.0-16.0) g/dL Hct 37.2 (37-47) % MCV 84.4 (80-100) fL MCH 27.0 (25-34) pg MCHC 32.0 (32-36) g/dL RDW Std Deviation 42.3 (36.4-46.3) fL RDW Coeff of Kam 13.7 (11.5-14.5) % Plt Count 298 (130-400) K/uL MPV 9.9 (7.4-10.4) fL Immature Gran % (Auto) 8.9 % Neut % (Auto) 79.1 % Lymph % (Auto) 7.0 % [place] % (Auto) 4.6 % Eos % (Auto) 0.0 % Baso % (Auto) 0.4 % Immature Gran # (Auto) 1.87 H (0.00-0.02) K/uL Neut # (Auto) 16.58 H (1.4-6.5) K/uL Lymph # (Auto) 1.46 (1.2-3.4) K/uL [place] # (Auto) 0.96 H (0.11-0.59) K/uL Eos # (Auto) 0.01 (0-0.5) K/uL Baso # (Auto) 0.09 (0-0.2) K/uL Sodium 140 (136-145) mmol/L Potassium 3.9 (3.5-5.1) mmol/L Chloride 108 H (98-107) mmol/L Carbon Dioxide 24 (21-32) mmol/L Anion Gap 8.0 (3-11) BUN 11 (7-18) mg/dl Creatinine 0.58 L (0.6-1.2) mg/dl Est Cr Clr Drug Dosing 145.5 ml/min Est GFR ( Amer) > 150.0 Est GFR (Non-Af Amer) 132.7 BUN/Creatinine Ratio 18.8 (10-20) Glucose 122 H (70-99) mg/dl Calcium 8.8 (8.5-10.1) mg/dl Medications Administered Current Inpatient Medications Acetaminophen (Tylenol) 650 mg PO Q4H PRN PRN Reason: Pain or Fever Stop: 02/17/19 17:35 Last Admin: 01/19/19 09:35 Dose: 650 mg Documented by: Al Hydrox/Mg Hydrox/Simethicone (Maalox) 15 ml PO Q4H PRN PRN Reason: Dyspepsia Stop: 07/20/19 17:35 Albuterol (Duoneb) 3 ml NEB Q4R YAN Stop: 02/18/19 07:59 Last Admin: 01/21/19 15:10 Dose: 3 ml Documented by: Albuterol (Ventolin Hfa) 2 puffs INH QID PRN PRN Reason: Shortness Of Breath Or Wheezing Stop: 02/19/19 19:04 Arformoterol Tartrate (Brovana Neb) 15 mcg INH BIDR YAN Stop: 02/17/19 19:59 Last Admin: 01/21/19 06:56 Dose: 15 mcg Documented by: Enoxaparin Sodium (Lovenox) 40 mg SQ Q24H YAN Stop: 02/18/19 08:59 Last Admin: 01/20/19 08:31 Dose: 40 mg Documented by: Methylprednisolone 80 mg/ (Syringe) 1.28 mls @ 1.5 mls/min IV Q8 YAN Stop: 02/18/19 21:59 Last Admin: 01/21/19 06:45 Dose: 1.5 mls/min Documented by: Azithromycin 500 mg/ Dextrose 255 mls @ 125 mls/hr IV Q24H [facility] Stop: 01/26/19 18:59 Last Infusion: 01/20/19 21:35 Dose: Infused Documented by: Ceftriaxone Sodium 1,000 mg/ (Dextrose) 50 mls @ 100 mls/hr IV Q24H [facility]; Protocol Stop: 01/26/19 20:59 Last Infusion: 01/20/19 21:35 Dose: Infused Documented by: Magnesium Oxide (Mag-Ox) 400 mg PO PM YAN Stop: 02/19/19 20:59 Last Admin: 01/20/19 21:03 Dose: 400 mg Documented by: Montelukast Sodium (Singulair) [address] [facility] Stop: 02/18/19 20:59 Last Admin: 01/20/19 21:03 Dose: 10 mg Documented by: Ondansetron HCl (Zofran) 4 mg IV Q6H PRN PRN Reason: Nausea Stop: 02/20/19 08:34 Sertraline HCl (Zoloft) [address] [facility] Stop: 02/20/19 08:59 Last Admin: 01/20/19 21:04 Dose: 50 mg Documented by: Topiramate (Topamax) [address] [facility] Stop: 02/19/19 20:59 Last Admin: 01/20/19 21:03 Dose: 100 mg Documented by: PG Care Time/CCT Total # of Minutes Spent Total Time Spent with Patient: Total time spent is greater than 50% in coordination of care (as documented) at patient's floor/unit and/or counseling patient: Resident Activity Tracking Resident Involvement: Resident Care Provided Care Provided: Adult Hospital Medicine (1) Status asthmaticus Asthma persistence: unspecified Asthma severity: severe Qualified Code(s): J45.902 - Unspecified asthma with status asthmaticus
[2019-01-21] MEDS: AZITHROMYCIN 500 MG in DEXTROSE 5% 250 ML IV SCH (18:41)
[2019-01-21] MEDS: TOPIRAMATE 100 MG TAB PO SCH (20:50)
[2019-01-21] MEDS: MAGNESIUM OXIDE 400 MG TAB PO SCH (20:51)
[2019-01-21] MEDS: cefTRIAXone SODIUM 1,000 MG in DEXTROSE 5% 50 ML IV SCH (20:51)
[2019-01-21] MEDS: MONTELUKAST SODIUM 10 MG TABLET PO SCH (20:51)
[2019-01-21] MEDS: SERTRALINE HCL 50 MG TABLET PO SCH (20:54)
[2019-01-22] MEDS: ALBUT/IPRATROP 3MG/0.5MG NEB 3 ML VIAL NEB SCH ×3 (03:09→11:00)
[2019-01-22] MEDS: ARFORMOTEROL TART 15MCG/2ML VIAL INH SCH (07:08)
[2019-01-22] MEDS: ENOXAPARIN INJ 40 MG/0.4 ML SYR SQ SCH (08:23)
[2019-01-22] MEDS: methylPREDNISolone 80 MG in SYRINGE 0 ML IV SCH (08:23)
[2019-01-22] MEDS: SERTRALINE HCL 50 MG TABLET PO SCH (09:07)
--- NOTE | 2019-01-22 09:16 | Discharge Summary ---
Date of Service January 22, 2019 Admission HPI Per Admitting Provider 18-year-old female with asthma hospitalized at [facility] on January 15 with status asthmaticus and suspected bronchitis. She was initially treated with a azithromycin and switch to Levaquin and doxycycline. She has not producing any sputum and sputum culture was not done. She did not improve and she had a CT scan today which was negative for PE but shows evidence of infiltrate in the left lingula area and left lower lobe. This could be hospital-acquired pneumonia. Family requested transfer to [facility] for further care. Pulmonary medicine consultation will be requested and she will be treated with cefepime and vancomycin. Nebulizer treatments will be switched to arformoterol and budesonide. She will continue with intravenous Solu-Medrol. It is assumed her leukocytosis is due to steroid therapy. She is not hypoxic on room air but remains on low-flow oxygen by nasal cannula. Admission Exam Per Admitting Provider General-alert and oriented x3, no fevers, no chills HEENT-head atraumatic and normocephalic, TMs intact bilaterally, pupils equal and reactive to light, extraocular muscles intact Neck-no lymphadenopathy or thyromegaly, trachea midline Chest-scattered bilateral rhonchi. End expiratory wheezes bilaterally. No dullness to percussion Cardiac-regular rate and rhythm, normal S1 and S2, no murmurs Abdomen-normal bowel sounds, nontender, no hepatosplenomegaly Extremities-no cyanosis, clubbing, or edema Neuro-cranial nerves II through XII intact, motor and sensory function within normal limits, strength symmetrical 5/5, no focal deficits Psych-normal affect, normal mood Principal Diagnosis status asthmaticus Discharge Exam General: Alert, oriented. Sitting up in bed in no acute distress. HEENT: NC/AT, PERRLA, EOMI, oropharynx moist. Chest: Nontender to palpation. CV: RRR, Normal s1, s2. No murmurs appreciated Resp: Breath sounds clear bilaterally but with good air movement. Abdomen: Soft, nontender, nondistended. No guarding. No organomegaly appreciated. Extremities: No edema. Discharge Data Allergies Allergy/AdvReac Type Severity Reaction Status Date / Time No Known Drug Allergies Allergy Unknown none Verified 08/09/17 14:18 Consultations 01/18/19 17:36 Consult Pulmonology Routine 01/19/19 18:09 Consult Packager Hand Routine Hospital Course (1) Pneumonia: 18yo female with a Hx of mild-moderate asthma presenting as a transfer from [facility] after presenting in status asthmaticus, and was found to have a pneumonia. Her pneumonia was treated with cefepime initially, then switched to ceftriaxone and azithromycin when it was determined there was no concern for pseudomonas coverage. Her severe asthma was treated with IV steroids 80mg at max dose, duonebs, as well as arfometerol and singulair. She improved, later being downgraded from the ICU where she stayed for a day for close monitoring. She was discharged on January 22 with 2 more days of cefdinir and azithromycin treatment, as well as arfometerol, singulair and a prednisone taper. She also received a script for a new nebulizer. On day of discharge her FEV1 was at 70% of predicted. Pneumonia -repeat chest xray obtained after leaving [facility]: showed RLL infiltrate -treated with rocephin and azithromycin for 3 days, discharged with cefdinir and azithromycin for another 2 days. -Close PCP followup strongly recommended. Asthma -first sever episode per pt. -Treated with IV steroids, duonebs, arfometerol and singulair. -Discharged with the above and a prednisone taper. -Pt was seen by pulmonology and will follow with them after discharge. -Close PCP followup strongly recommended. Depression -Cont home meds upon discharge Total Time Total Time Spent Total Time Spent (In Minutes): >30 Discharge Plan Discharge Items Patient Disposition: Home - Self-Care Reason For Visit: ASTHMATIC PNEUMONIA Discharge Diagnosis: Pneumonia Discharge Goals: Decrease discomfort, Improve disease control and Improve function Activity: Per 'Additional Instructions' section Non-emergency contact: Primary Care Provider and Division Manager Call non-emergency contact if: your symptoms worsen and you have a fever Follow-up/Referrals: Aleida Temple CRNP [Nurse Practitioner] - 02/05/19 9:30 am (follow up appointment at the lung doctor office with the mid level provider, Aleida Temple) Ventura Esparza [Primary Care Provider] - (follow up appointment with your primary care physician-) Diet: Regular Addtl Provider Instructions: You were admitted because you developed a pneumonia which likely triggered your asthma causing status asthmaticus. Pneumonia -You were treated with the IV antibiotics ceftriaxone and azithromycin. -You are being discharged with oral antibiotics cefdinir and azithromycin for 2 more days. Continue to take as directed. -Please followup with your primary care provider. Asthma -Your asthma was severe and your were treated with IV steroids, a long acting beta agonist (aformoterol) and a maintenance asthma medication (Singulair). -You are being discharged with oral steroids. Please take as directed. -You are also being discharged with aformoterol and Singulair. Please take as directed and follow up with your primary care doctor and your training engineer. -You are also being discharged with a prescription for a new nebulizer. Please use as directed. -Please also continue to take your home albuterol inhaler as needed. -It is important that you continue to follow up with your primary care provider and continue to follow up with a training engineer for continued monitoring of your asthma. -Please present to the nearest emergency room, should your symptoms return or worsen. Prescriptions: New cefdinir 300 mg capsule 300 mg PO BID 2 Days Qty: 4 RF: 0 azithromycin 250 mg tablet 250 mg PO DAILY 2 Days Qty: 2 RF: 0 prednisone 20 mg tablet See Rx Instructions .ROUTE .COMPLEX 12 Days Qty: 24 RF: 0 arformoterol 15 mcg/2 mL solution for nebulization 15 mcg INH BID 30 Days Qty: 120 RF: 0 montelukast [Singulair] 10 mg tablet 10 mg PO HS 30 Days Qty: 30 RF: 0 Continued Sertraline HCl 50 MG tablet 50 mg PO QAM 30 Days Qty: 30 RF: 0 albuterol sulfate 90 mcg/actuation Hfa Aerosol Inhaler 2 puff INHALATION QID PRN (Reason: Shortness Of Breath Or Wheezing) RF: 0 topiramate [Topamax] 100 mg Tablet 100 mg PO HS RF: 0 Stand-Alone Forms: [facility] Discharge Orders: Discharge Order (Routine); Ordered 01/22/19 Ordered By: Charito Gonzalez Admission Data Admit Date/Time: 01/18/19 17:01 Attending Provider: Constantin Page Admit Provider: Al Green Primary Care Provider: Ventura Esparza Other Providers: Son Schmitt ; David Krishnamurthy ; Jaxson Cortes Service: Telemetry Other Interventions: Discharge Summary Assessment (RN) Last Done: 01/22/19 11:24 DC Date/Time DO NOT enter until pt leaves facility: 01/22/19 13:15 Supervising Physician Co-Signing Physician Notes I personally examined the patient and verified all dickey points of history and exam, discussed case, and agree with decision making with Dr Gonzalez. feeling better, would very much like to go home. breathing improving, not yet to baseline but feeling better/breathing better vitals noted nad fatigued but breathing unlabored. lungs coarse but cta b/l no r/r/w good effort no accessory muscles pneumonia (most likely CAP) triggering status asthmaticus and signficant respiratory failure - now doing better, safe/stable for home. finish course of abx, tapering course of steroids. aformoterol for now BID, hopefully can wean back to just prn albuterol over coming weeks. close PCP and pulmonary f/u as outpt.
[2019-01-22] MEDS ORDERED: predniSONE 20 MG TAB PO STA (11:35)
--- NOTE | 2019-01-22 16:45 | Critical Care Progress Note ---
Date of Service January 22, 2019 Assessment & Plan (1) Status asthmaticus: Impression: 1. Status asthmaticus, resolved. 2. Acute respiratory failure, resolved. 3. Acute rhinitis. Plan: 1. Continue with current bronchodilators. 2. Change the patient to prednisone 40 mg p.o. twice daily for 5 days then taper by 10 mg every other day. 3. Follow-up with pulmonary as an outpatient. 4. The patient would like to go home to take care of her 2 babies, agree with the plan with close monitoring and sooner than later appointment in the office. Thank you Subjective The patient improved dramatically, although she presented with a status a sthmaticus, the patient wants to go home although her respiratory status has returned back to normal but her peak flow remains at 70% of predicted. Her expected to be 530 and she is at 350 currently. Review of Systems Review of Systems: No wheezing, ambulatory, denies any shortness of breath, no chest tightness, no rhinorrhea. The rest of her review of system otherwise was unremarkable. Physical Exam Physical Exam: No audible wheezing, minimal rhonchi mainly at the right base, S1-S2 regular rate and rhythm, lungs are clear, abdomen is benign, no skin rash, no oral thrush. No tremor. Results & Data Vital Signs (Past 12 Hours) Vital Signs Temp Pulse Pulse Resp BP BP Pulse Ox 01/22/19 11:24 36.6 C 74 105 H 16 103/54 L 106/52 L 98 01/22/19 11:00 74 16 98 01/22/19 07:08 105 H 16 98 01/22/19 06:58 36.6 C 103 H 18 106/52 L 97 Laboratory Results Labs were reviewed personally. Diagnostic Findings Chest x-ray without infiltrate. (1) Status asthmaticus Asthma severity: severe Asthma persistence: unspecified Qualified Code(s): J45.902 - Unspecified asthma with status asthmaticus
[2019-01-22] MEDS ORDERED: predniSONE 50 MG TAB PO SCH (21:00)
[2019-01-25 23:02] LABS: Legionella pneumoph IgM, IFA <1:256 TITER; Mycoplasma pneumoniae Ab, IgG 3.59 (<=0.90); Mycoplasma pneumoniae Ab, IgM 154 U/mL (<770)
[2019-01-26 13:10] LABS: Aspergillus Ag Index 0.07 (<0.50); Aspergillus Antigen, Serum Not Detected (Not Detected); Aspergillus Flavus Negative (Negative); Aspergillus Niger Negative (Negative); Immunoglobulin IgE 163 KU/L (<115)
[2019-01-26 14:15] LABS: Aspergillus fumigatus NEGATIVE (NEGATIVE)
== END 2019-01-22 13:15 | disposition home or self-care (01) | DRG 193 ==
LOC: SUATTDRO 17:01 → 2E 17:01 → 1E 01-19 18:08 → 2E 01-20 16:16

== ENCOUNTER 2020-02-25 07:33 | Inpatient (IN) ==
[2020-02-25] MEDS ORDERED: OXYTOCIN 30 UNITS/500 ML BAG IV PRN ×3 (07:54→23:46)
--- NOTE | 2020-02-25 08:14 | History & Physical Report ---
Date of Service February 25, 2020 Assessment & Plan (1) Encounter for induction of labor: Reanna Louise is a 19-year-old at 39-1/7 WGA with complicated by diet-controlled GDM here today for elective induction of labor. Admission Date: February 25, 2020 Anticipate vaginal by IOL per pitosin protocol; pt requesting epidural. Present on Admission?: Yes History of Present Illness Primary Care Provider: NO PCP Reanna is a 19 y/o female with a notable history of severe asthma and depression who presents to L&D with her partner, Alexx, for EDC on 02/25/20; dating parameters US; Reason for induction: diet-controlled GDM; otherwise, only other complication during this is iron-deficiency anemia c/w supplementation. Of note, h/o previous anemia after following of second child that required transfusion x1; No contractions currently; good movement; no fluid loss; denies bloody show External FHT and external uterine monitors used; Category I tracing; +FHT variability. Had regular appointments with OB. Labs: (08/06/19) Blood type: O+ Antibody screen: negative H.7 (02/24) Hct: 28.4 (02/24) WBC: 7.36 (02/24) Plt: 233 (02/24) Rubella: immune VDRL/RPR: NR Gonorrhea: neg Chlamydia: neg HIV: neg CF: _ SMA: _ HbSAg: neg GBS neg Allergies Allergy/AdvReac Type Severity Reaction Status Date / Time No Known Allergies Allergy Verified 02/25/20 07:47 Home Medications Home Medications Medication Instructions Recorded Confirmed Type PNV cmb#95-ferrous fumarate-FA 1 tab PO DAILY 07/19/19 02/25/20 History [] albuterol sulfate 2.5 mg INH Q4H PRN #30 ea 07/19/19 02/25/20 Rx acetone (urine) test #50 ea 09/03/19 02/22/20 Rx blood sugar diagnostic #120 ea 09/03/19 02/22/20 Rx blood-glucose meter #1 ea 09/03/19 02/22/20 Rx lancets 33 gauge #120 ea 09/03/19 02/22/20 Rx ondansetron HCl 4 mg tablet 4 mg PO Q6H PRN 5 Days #20 tab 09/03/19 02/25/20 Rx ferrous sulfate 325 mg (65 mg 325 mg PO DAILY 01/02/20 02/25/20 History iron) tablet omalizumab 150 mg SQ MONTHLY 02/15/20 02/25/20 History Patient History Social History Smoking Status: Never smoker Second Hand Exposure: No; Hx Alcohol Use: No Hx Substance Use: No Preferred Language: Yakut Communication Ability: Effective Senior Business Process Analyst Required: No Beliefs That Will Affect Care: None marital status: Single marital status details: mitchell Pierce (23) [phone] Current Living Situation: Family and Significant Other Current Living Situation Comment: lives with fob, 2 children, cats-fob to change litter current occupational status: employed 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 No acute distress. Cardiac: Regular rate and rhythm, no murmurs/rubs/gallops. Respiratory: Clear to auscultation bilaterally a/p, no wheezes/rales/rhonchi. No increased work of breathing. Symmetrical chest rise. No respiratory distress. Abdomen: Gravid; FH _cm; _ FHTs; Position: _ Pelvic: Dilation 2cm; Effacement 70%; Station -[address] Devine. Lower Extremities: No lower extremity edema or swelling. No deep calf pain. Jovon's negative bilaterally Results & Data Vital Signs (Past 12 Hours) Vital Signs Pulse BP 02/25/20 07:43 95 H 116/68 Resident Activity Tracking Resident Involvement: Resident Care Provided Care Provided: Adult Hospital Medicine and OB Delivery
[2020-02-25 08:24] LABS: Hematocrit (blood only) 28.4 % (37-47); Hemoglobin 8.7 g/dL (12.0-16.0); Mean Corpuscular Hemoglobin 22.7 pg (25-34); Mean Platelet Volume 10.3 fL (7.4-10.4); Platelet Count 233 K/uL (130-400); RDW Coefficient of Variation 16.4 % (11.5-14.5); RDW Standard Deviation 44.8 fL (36.4-46.3); Red Blood Count 3.84 M/uL (4.2-5.4); White Blood Count 7.36 K/uL (4.8-10.8)
[2020-02-25 08:26] LABS: Mean Corpuscular Hgb Conc 30.6 g/dL (32-36)
[2020-02-25] MEDS: LACTATED RINGER'S 1,000 ML IV PRN ×3 (09:19→19:45)
[2020-02-25] MEDS ORDERED: fentaNYL 2MCG/ML ROPIV 1.25MG/ML 100 ML BAG EPI ONE (14:39)
[2020-02-25] MEDS ORDERED: fentaNYL citrate 100 MCG/2 ML VIAL ONE (14:39)
[2020-02-25] MEDS ORDERED: ePHEDrine sulfate 50 MG/ML AMP ONE (14:39)
[2020-02-25] MEDS ORDERED: BUPIVACAINE 0.25% 30 ML VIAL ONE (14:39)
--- NOTE | 2020-02-25 14:39 | Labor Progress Brief Note ---
Date of Service February 25, 2020 Subjective Starting to feel ctx. FHT Cat 1 [place] Q 2-3 min SVE unchanged. Desires epidural. Assessment & Plan Admission and Anticipated Discharge Date Admission Date: February 25, 2020 Results & Data ([facility]) Vital Signs (Past 12 Hours) Vital Signs Temp Pulse Resp BP 02/25/20 13:34 95 H 103/56 L 02/25/20 12:42 88 126/59 L 02/25/20 12:04 36.8 C 02/25/20 12:02 87 110/65 02/25/20 07:45 36.7 C 02/25/20 07:43 95 H 116/68 Coding Level of Care Code None
[2020-02-25] MEDS ORDERED: fentaNYL 2MCG/ML ROPIV 1.25MG/ML 100 ML BAG EPI PRN (14:51)
[2020-02-25] MEDS ORDERED: ePHEDrine sulfate 50 MG/ML AMP IV PRN (14:51)
[2020-02-25] MEDS ORDERED: DiphenhydrAMINE HCL 50 MG/ML VIAL IV PRN (14:51)
[2020-02-25] MEDS ORDERED: NALOXONE HCL 0.4 MG/1 ML VIAL/CARP IV PRN (14:51)
[2020-02-25] MEDS ORDERED: NALOXONE HCL 1 MG in SODIUM CHLORIDE 0.9% 1000ML 1,000 ML IV PRN (14:51)
[2020-02-25] MEDS ORDERED: ONDANSETRON INJ 2 MG/ML 2 ML VIAL IV PRN (14:51)
--- NOTE | 2020-02-25 14:52 | Anesthesiology Consultation ---
Date of Service February 25, 2020 Assessment & Plan ASA ASA2 Proposed Anesthesia Anesthesia Type: General Risk / Benefits Reviewed With: PT / POA / Parent / Guardian, Accepts Plan and Informed Consent Obtained History Height/Weight Height: 5 ft 3 in Weight: 77.111 kg Allergies Allergy/AdvReac Type Severity Reaction Status Date / Time No Known Allergies Allergy Verified 02/25/20 07:47 Medications Home Medications Medication Instructions Recorded Confirmed Last Taken PNV cmb#95-ferrous fumarate-FA 1 tab PO DAILY 07/19/19 02/25/20 02/24/20 08:00 [] albuterol sulfate 2.5 mg INH Q4H PRN #30 ea 07/19/19 02/25/20 Unknown acetone (urine) test #50 ea 09/03/19 02/22/20 Unknown blood sugar diagnostic #120 ea 09/03/19 02/22/20 Unknown blood-glucose meter #1 ea 09/03/19 02/22/20 Unknown lancets 33 gauge #120 ea 09/03/19 02/22/20 Unknown ondansetron HCl 4 mg tablet 4 mg PO Q6H PRN 5 Days #20 tab 09/03/19 02/25/20 Unknown ferrous sulfate 325 mg (65 mg 325 mg PO DAILY 01/02/20 02/25/20 02/24/20 08:00 iron) tablet omalizumab 150 mg SQ MONTHLY 02/15/20 02/25/20 01/26/20 08:00 Active Medications Generic Name Dose Route Start Last Admin Trade Name Freq PRN Reason Stop Dose Admin Lactated Ringer's 1,000 mls @ 125 mls/hr 02/25/20 07:54 02/25/20 14:37 Lr IV 02/27/20 07:53 999 mls/hr .Q8H PRN Infusion L&D Protocol Protocol Oxytocin 30 units in 500 mls @ 5 mls/hr 02/25/20 07:58 02/25/20 14:09 Pitocin IV 02/27/20 07:57 0.3 units/hr .Q24H PRN 5 mls/hr Labor Induction/Augmentation Titration Protocol 0.3 UNITS/HR Exercise / Class Metabolic Activity II 4-5 Yardwork/Stairs/Walk up hill Past Anesthesia History No Hx of Anesthesia Complications and No Family Hx of Anesthesia Complications History of PONV No Hx of PONV and No Hx of Motion Sickness Social History Smoking Status: Never smoker Hx Alcohol Use: No Hx Substance Use: No substance use type: does not use Review of Systems denies fever/cough/ colds/ chest pain/ SOB/ NOAH Constitutional: no fever and no chills Respiratory: no cough and no dyspnea denies NOAH Cardiovascular: no chest pain and no dyspnea on exertion Physical Exam Vital Signs Last Vital Signs Temp 36.8 C 02/25/20 12:04 Pulse 98 H 02/25/20 14:47 Resp 16 02/25/20 12:04 BP 108/57 L 02/25/20 14:35 Pulse Ox 100 02/25/20 14:47 ENMT Mouth: no TMJ abnormality and no dentition abnormality Thyromental Distance: > or= 3.5 Finger Breadths Mallampati Class: II Neck neck extension not limited Respiratory normal respiratory effort; no respiratory distress Auscultation: lungs clear to auscultation bilaterally Cardiovascular Rate/Rhythm: regular rate and regular rhythm Neurologic moves all extremities Psychiatric Orientation: alert and oriented x 3 Testing Laboratory Results 02/25/20 08:04 02/25/20 02/25/20 02/25/20 14:35 13:33 12:28 POC Glucose 91 87 86 02/25/20 02/25/20 02/25/20 11:35 10:34 09:32 POC Glucose 79 76 78 02/25/20 08:27 POC Glucose 105 H
--- NOTE | 2020-02-25 17:48 | Labor Progress Brief Note ---
Date of Service February 25, 2020 Subjective Comfortable with epidural. FHT Cat 1 [place] Q 2 AROM clear fluid. SVE 3/80/-2 Assessment & Plan Admission and Anticipated Discharge Date Admission Date: February 25, 2020 Results & Data ([facility]) Vital Signs (Past 12 Hours) Vital Signs Temp Pulse Resp BP Pulse Ox 02/25/20 17:45 73 117/59 L 02/25/20 17:43 73 99 02/25/20 17:38 73 99 02/25/20 17:34 83 108/56 L 02/25/20 17:33 73 99 02/25/20 17:28 86 94/52 L 99 02/25/20 17:23 80 96/52 L 99 02/25/20 17:18 84 97/52 L 99 02/25/20 17:13 77 96/52 L 99 02/25/20 17:08 96 H 93/51 L 97 02/25/20 17:03 88 100 02/25/20 17:02 78 94/54 L 02/25/20 17:00 82 16 95/55 L 02/25/20 16:58 88 95/53 L 99 02/25/20 16:56 75 102/55 L 02/25/20 16:54 78 92/54 L 02/25/20 16:53 81 98 02/25/20 16:52 81 100/58 L 02/25/20 16:50 73 97/52 L 02/25/20 16:48 86 94/61 L 98 02/25/20 16:46 71 96/54 L 02/25/20 16:44 75 92/51 L 02/25/20 16:43 75 98 02/25/20 16:42 82 98/56 L 02/25/20 16:40 73 99/58 L 02/25/20 16:38 85 93/56 L 99 02/25/20 16:37 88 96/52 L 02/25/20 16:34 74 101/58 L 02/25/20 16:33 103 H 100 02/25/20 16:32 90 96/59 L 02/25/20 16:30 98 H 16 107/60 02/25/20 16:28 72 99/58 L 99 02/25/20 16:26 77 94/52 L 02/25/20 16:24 83 102/57 L 02/25/20 16:23 85 99 02/25/20 16:22 85 97/58 L 02/25/20 16:20 75 98/58 L 02/25/20 16:18 87 102/59 L 99 02/25/20 16:16 94 H 96/55 L 02/25/20 16:15 16 02/25/20 16:14 85 96/53 L 02/25/20 16:13 85 104/57 L 98 02/25/20 16:10 90 100/57 L 02/25/20 16:08 85 98/59 L 98 02/25/20 16:07 85 92 02/25/20 16:06 77 97/60 L 02/25/20 16:04 69 102/55 L 02/25/20 16:03 90 100 02/25/20 16:02 86 96/55 L 02/25/20 16:00 65 16 100/57 L 02/25/20 15:59 71 104/60 02/25/20 15:58 72 100 02/25/20 15:56 104 H 89/59 L 02/25/20 15:55 83 97/59 L 02/25/20 15:53 81 98 02/25/20 15:52 75 81/50 L 02/25/20 15:48 80 88/53 L 98 02/25/20 15:45 16 02/25/20 15:43 98 H 85/52 L 100 02/25/20 15:38 94 H 95/60 L 100 02/25/20 15:33 104 H 99/57 L 99 02/25/20 15:30 18 02/25/20 15:29 96 H 98/57 L 02/25/20 15:28 92 H 99 02/25/20 15:23 83 99 02/25/20 15:21 78 98/72 L 02/25/20 15:19 82 97/69 L 02/25/20 15:18 94 H 100 02/25/20 15:17 87 98/57 L 02/25/20 15:15 36.8 C 79 16 103/57 L 02/25/20 15:13 92 H 102/60 100 02/25/20 15:11 88 105/63 02/25/20 15:08 87 103/57 L 100 02/25/20 15:03 77 100 02/25/20 14:58 84 100 02/25/20 14:47 98 H 100 02/25/20 14:35 84 108/57 L 02/25/20 13:34 95 H 103/56 L 02/25/20 12:42 88 126/59 L 02/25/20 12:04 36.8 C 16 02/25/20 12:02 87 110/65 02/25/20 07:45 36.7 C 16 02/25/20 07:43 95 H 116/68 Coding Level of Care Code None
--- NOTE | 2020-02-25 21:58 | Delivery Summary ---
Vaginal Delivery Summary Date of Service February 25, 2020 Vaginal Delivery Summary Vaginal Delivery Summary: Pre-delivery diagnoses: 19yo @ 39 1/7, IOL, GDMA2 Post-delivery diagnoses: same Procedure: spontaneous vaginal delivery Surgeon: Susie Devine DO Complications: none Findings: Viable male . Apgars: 8/9. Weight pending, please see nursery records Estimated blood loss: 300ml Description of delivery: The patient progressed to complete with epidural anesthesia. She then began to push. She spontaneously vaginally delivered a viable from the cephalic presentation. The head delivered in SCOTT position. Nuchal cord x 1, reduced easily. The anterior shoulder delivered, followed by the posterior hand and then arm, followed by the body. Nuchal around the body. The baby was placed on mother's abdomen and a spontaneous cry was heard. The cord was doubly clamped and cut. Cord blood was obtained. The placenta was delivered spontaneously intact with a 3-vessel cord. The uterus and vagina were swept of clots and debris. IV pitocin was given. The uterus became firm. The cervix, vagina, and perineum were inspected and no lacerations were noted. Excellent hemostasis was observed. The mother and baby are recovering in stable and good condition in the room. Sponge and instrument counts were correct x 2. Susie Devine DO [facility] Vaginal Delivery Charge Vaginal Delivery Codes: 60780 global code for the antepartum, delivery, and post-
[2020-02-25] MEDS ORDERED: OXYCODONE/ACETAMINOPHEN 5mg/325mg TAB PO PRN (23:46)
[2020-02-25] MEDS ORDERED: HYDROCORTISONE ACETATE 25 MG SUPP PR PRN (23:46)
[2020-02-25] MEDS ORDERED: bisacodyL 10 MG SUPP PR PRN (23:46)
[2020-02-25] MEDS ORDERED: SUPERCREAM 0.870% 15 GM JAR EXT PRN (23:46)
[2020-02-25] MEDS ORDERED: ACETAMINOPHEN 325 MG TAB PO PRN (23:46)
[2020-02-25] MEDS ORDERED: DIPHTHERIA/TETANUS/PERTUSSIS 0.5 ML SYR/VIAL IM ONE (23:46)
[2020-02-25] MEDS ORDERED: ALBUTEROL 0.5% NEB SOLN 2.5 MG/0.5 ML VIAL INH PRN (23:46)
[2020-02-25] MEDS ORDERED: BENZOCAINE 20% AER SPR 82.5 GM CAN EXT PRN (23:46)
[2020-02-26] MEDS: IBUPROFEN 600 MG TAB PO PRN ×2 (00:23→13:00)
--- NOTE | 2020-02-26 06:32 | Obstetrical Progress Note ---
Date of Service <Constantin Silva MD - Last Filed: 02/26/20 07:35> February 26, 2020 Assessment & Plan <Constantin Silva MD - Last Filed: 02/26/20 07:35> (1) Encounter for induction of labor: - s/p IOL at 39.1 for diet-controlled GDM - Glucose stable overnight - last reading 74 at 2000hr last night - Feels well this AM. Eating well, voiding well, ambulating well. - Pain well controlled with ibuprofen 600mg Q4H PRN. - Routine post- care - OOB, ambulation, diet, stool softeners PRN - Rubella immune - Blood type O+ Subjective <Constantin Silva MD - Last Filed: 02/26/20 07:35> Reanna is a 19 y/o female ; PPD #1 following induced vaginal delivery (IOL) at 39-1/7 weeks. Doing well this morning -- does note some residual numbness along her right lower extremity in setting of epidural yesterday. Mild abdominal cramping but well managed on analgesics. Voiding appropriately and without difficulty. Tolerating meals overnight and able to ambulate some. Passing gas, but no BM yet. Some persistent lochia with some improvement this morning. Bottle feeding. Review of Systems Denies fever, chills, sweats Denies shortness of breath, difficulty breathing, chest pain, palpitations, chest pressure. Denies breast pain. Denies dysuria. Denies headache. Physical Exam <Constantin Silva MD - Last Filed: 02/26/20 07:35> General: Alert, oriented. No acute distress. Cardiac: Regular rate and rhythm, no murmurs/rubs/gallops. Respiratory: Clear to auscultation bilaterally a/p, no wheezes/rales/rhonchi. No increased work of breathing. Symmetrical chest rise. No respiratory distress. Abdomen: Soft, nontender, nondistended. Bowel sounds present. Uterus: Uterine fundus firm, palpable 1cm below umbilicus. Lower Extremities: No lower extremity edema or swelling. No deep calf pain. Jovon's negative bilaterally. Results & Data <Constantin Silva MD - Last Filed: 02/26/20 07:35> Vital Signs (Past 12 Hours) Vital Signs Temp Pulse Pulse Resp BP BP Pulse Ox 02/26/20 03:25 36.8 C 67 16 101/63 96 02/26/20 00:05 36.5 C 86 16 118/68 99 02/25/20 23:50 18 02/25/20 23:49 78 111/56 L 02/25/20 23:34 81 115/60 02/25/20 23:20 18 02/25/20 23:19 88 113/57 L 02/25/20 23:04 105 H 120/61 02/25/20 22:50 18 02/25/20 22:49 100 H 131/77 02/25/20 22:35 18 02/25/20 22:34 90 106/59 L 02/25/20 22:21 107 H 134/73 02/25/20 22:05 18 02/25/20 22:04 100 H 120/58 L 02/25/20 21:52 103 H 93 02/25/20 21:50 37.0 C 18 02/25/20 21:49 100 H 145/60 H 02/25/20 21:48 89 99 02/25/20 21:43 89 90 02/25/20 21:38 75 100 02/25/20 21:34 68 95/57 L 02/25/20 21:33 65 100 02/25/20 21:28 88 100 02/25/20 21:23 85 100 02/25/20 21:19 111 H 123/69 02/25/20 21:18 128 H 100 02/25/20 21:14 105 H 91 02/25/20 21:13 85 96 02/25/20 21:08 81 100 02/25/20 21:06 77 122/56 L 02/25/20 21:03 79 97 02/25/20 21:00 111 H 94 02/25/20 20:58 107 H 98 02/25/20 20:53 98 H 100 02/25/20 20:50 110 H 131/73 02/25/20 20:48 106 H 99 02/25/20 20:43 89 98 02/25/20 20:38 94 H 97 02/25/20 20:34 108 H 123/71 90 02/25/20 20:33 80 100 02/25/20 20:28 97 H 99 02/25/20 20:27 18 02/25/20 20:23 90 97 02/25/20 20:19 92 H 95/56 L 02/25/20 20:18 78 97 02/25/20 20:13 89 97 02/25/20 20:08 97 H 98 02/25/20 20:03 92 H 97/58 L 98 02/25/20 19:58 85 98 02/25/20 19:53 84 97 02/25/20 19:50 80 99/60 L 02/25/20 19:48 69 98 02/25/20 19:43 76 99 02/25/20 19:38 86 98 02/25/20 19:34 79 95/55 L 02/25/20 19:33 77 98 02/25/20 19:28 79 97 02/25/20 19:23 78 97 02/25/20 19:19 77 89/55 L 02/25/20 19:18 77 98 02/25/20 19:13 78 99 02/25/20 19:09 36.9 C 18 02/25/20 19:08 79 99 02/25/20 19:04 85 95/55 L 02/25/20 19:03 77 96 02/25/20 19:00 18 02/25/20 18:58 87 98 02/25/20 18:53 84 97 02/25/20 18:49 79 96/55 L 02/25/20 18:48 79 98 02/25/20 18:43 67 98 02/25/20 18:38 77 99 02/25/20 18:34 78 91/53 L 02/25/20 18:33 80 98 02/25/20 18:30 16 02/25/20 18:28 70 99 <Susie Devine DO - Last Filed: 02/26/20 07:45> Co-Signing Physician Notes Resident Physician Supervision Note: I was present with Dr. Silva during the history and exam. I discussed the case with the resident and agree with the findings and plan as documented in the note. Any exceptions or clarifications are listed here: PPD#1 doing well. Documented By: Susie Devine DO Resident Activity Tracking <Constantin Silva MD - Last Filed: 02/26/20 07:35> Resident Involvement: Resident Care Provided Care Provided: Adult [facility] Medicine and OB Delivery
[2020-02-26 07:19] LABS: Hematocrit (blood only) 25.3 % (37-47); Hemoglobin 7.8 g/dL (12.0-16.0)
[2020-02-26] MEDS: DOCUSATE SODIUM 100 MG CAP PO SCH ×2 (08:06→20:25)
[2020-02-26] MEDS: PRENATAL VITAMIN 1 TAB PO SCH (08:06)
--- NOTE | 2020-02-26 08:14 | Anesthesia Procedure Note ---
Date of Service February 26, 2020 Anesthesia Post Epidural Note Vital Signs Vital Signs: Temp Pulse Resp BP Pulse Ox 36.4 C L 76 18 96/60 L 96 02/26/20 07:44 02/26/20 07:44 02/26/20 07:44 02/26/20 07:44 02/26/20 07:44 Pain Intensity Bilateral Perineal: Pain Intensity: 2 Abdomen: Pain Intensity: 2 Notes Mental Status: alert / awake / arousable and participated in evaluation Nausea / Vomiting: adequately controlled Pain: adequately controlled Airway Patency, RR, SpO2: stable & adequate BP & HR: stable & adequate Hydration State: stable & adequate Neuraxial Anesthesia: was administered and sensory block is resolving Anesthetic Complications: no major complications apparent and Pt Satisfied with anesthetic care Epidural: Removed without complications and With tip intact Notes: Epidural site clean, dry and intact. No signs of edema, erythema or bruising at insertion site. Pt instructed to request anesthesia if she has residual lower extremity numbness or if she develops lower extremity pain or weakness, back pain or headache.
[2020-02-26] MEDS ORDERED: bisacodyL 5 MG TABEC PO SCH (20:00)
[2020-02-27] MEDS: IBUPROFEN 600 MG TAB PO PRN (04:27)
--- NOTE | 2020-02-27 06:29 | Obstetrical Progress Note ---
Date of Service <Constantin Silva MD - Last Filed: 02/27/20 07:26> February 27, 2020 Assessment & Plan <Constantin Silva MD - Last Filed: 02/27/20 07:26> (1) Encounter for supervision of normal in multigravida: - s/p IOL at 39.1 for diet-controlled GDM - Feels well this AM. Eating well, voiding well, ambulating well. - Hgb 7.8 yesterday AM -- CBC re-ordered for this morning. Not symptomatic. BP 105/70 with HR 66 this AM. Reports minimal bleeding. - Pain well controlled with ibuprofen 600mg Q4H PRN. - Routine post- care - OOB, ambulation, diet, stool softeners PRN - anticipate d/c today pending stable return of labs - Rubella immune - Blood type O+ Day #:: 2 Subjective <Constantin Silva MD - Last Filed: 02/27/20 07:26> Reanna is a 19 y/o female ; PPD #2 following induced vaginal delivery (IOL) at 39-1/7 weeks. Doing well this morning with no concerns; ambulated frequently yesterday without difficulty. Mild abdominal cramping but well managed on analgesics. Voiding appropriately and without difficulty. Tolerating meals overnight and able to ambulate some. Passing gas and had BM x 1 yesterday. Some persistent lochia with some improvement this morning. Bottle feeding. Physical Exam <Constantin Silva MD - Last Filed: 02/27/20 07:26> General: Alert, oriented. No acute distress. No feelings of passing out. Cardiac: Regular rate and rhythm, no murmurs/rubs/gallops. Respiratory: Clear to auscultation bilaterally a/p, no wheezes/rales/rhonchi. No increased work of breathing. Symmetrical chest rise. No respiratory distress. Abdomen: Soft, nontender, nondistended. Bowel sounds present. Uterus: Uterine fundus firm, palpable ~2cm below umbilicus. Lower Extremities: No lower extremity edema or swelling. No deep calf pain. Jovon's negative bilaterally. Results & Data <Constantin Silva MD - Last Filed: 02/27/20 07:26> Vital Signs (Past 12 Hours) Vital Signs Temp Pulse Resp BP Pulse Ox 02/26/20 23:10 36.7 C 68 16 94/59 L 97 02/26/20 19:14 36.8 C 79 16 102/66 98 <Evin Fernandez MD, FACOG - Last Filed: 02/27/20 07:30> Co-Signing Physician Notes Resident Physician Supervision Note: I was present with Dr. Silva during the history and exam. I discussed the case with the resident and agree with the findings and plan as documented in the note. Any exceptions or clarifications are listed here: [None] Documented By: Evin Fernandez MD, FACOG Resident Activity Tracking <Constantin Silva MD - Last Filed: 02/27/20 07:26> Resident Involvement: Resident Care Provided Care Provided: Adult Hospital Medicine and OB Delivery
[2020-02-27] MEDS ORDERED: FERROUS SULFATE 325 MG TAB PO ONE (07:39)
[2020-02-27 08:00] LABS: Hematocrit (blood only) 25.9 % (37-47); Hemoglobin 7.9 g/dL (12.0-16.0); Mean Corpuscular Hemoglobin 22.4 pg (25-34); Mean Corpuscular Hgb Conc 30.5 g/dL (32-36); Mean Corpuscular Volume 73.4 fL (80-100); Mean Platelet Volume 10.2 fL (7.4-10.4); Platelet Count 206 K/uL (130-400); RDW Coefficient of Variation 16.4 % (11.5-14.5); RDW Standard Deviation 44.1 fL (36.4-46.3); Red Blood Count 3.53 M/uL (4.2-5.4); White Blood Count 10.54 K/uL (4.8-10.8)
[2020-02-27] MEDS: PRENATAL VITAMIN 1 TAB PO SCH (08:16)
[2020-02-27] MEDS: DOCUSATE SODIUM 100 MG CAP PO SCH (08:16)
[2020-02-27] MEDS ORDERED: FERROUS SULFATE 325 MG TAB PO SCH (09:00)
== END 2020-02-27 13:50 | disposition home or self-care (01) | DRG 807 ==
LOC: 4S1 07:33 → 4S2 02-26 00:15

== ENCOUNTER 2021-11-10 07:36 | Inpatient (IN) ==
[2021-11-10] MEDS ORDERED: OXYTOCIN 30 UNITS/500 ML BAG IV PRN ×3 (07:39→16:17)
--- NOTE | 2021-11-10 08:16 | History & Physical Report ---
Date of Service November 10, 2021 Assessment & Plan (1) with 39 completed weeks gestation: (2) Insulin controlled gestational diabetes mellitus (GDM) during : (3) Severe persistent asthma, poorly-controlled: Plan: admit. cervix favorable. start pitocin. arom as indicated . epidural as desired. fetus category one. monitor bs and treat as indicated. anticipate . Admission and Anticipated Discharge Date Admission Date: November 10, 2021 History of Present Illness Chief Complaint: presents for induction Primary Care Provider: NO PCP Patient is a 21yowf with iup at39 08/07 who presents to labor and delivery for induciton for A2GDM. Patient had bulb last night that fell out as she got home. Notes some slight spotting with that. No contractions. Good fm. Last us 10/22 with efw 64%. Took last dose of insulin last night. and Delivery Plans GDM on insulin *Wkly NSTs @32wks and Twice wkly @36wks *Serial growth US @28wks *Deliver by EDC-induction scheduled 11/10/21 Asthma with exacerbation in *poorly controlled in requiring oral steroids *seeing Dr. Wheeler *growth us every 4 weeks. *hx of hospitalization for respiratory failure with asthma in the past. covid vaccine--[employer], second in December, recommend booster Flu vaccine received 04/28/21 [facility] Labs: Blood Type O Positive 03/31/21 Antibody Screen NEGATIVE 03/31/21 Hemoglobin 9.6 g/dL (12.0-16.0) L 08/26/21 Hematocrit 31.7 % (37-47) L 08/26/21 Mean Corpuscular Volume 81.3 fL (80-100) 08/26/21 Platelet Count 305 K/uL (130-400) 08/26/21 Rubella IgG Antibody Immune (Immune) 03/31/21 Rapid Plasma Reagin Nonreactive (Nonreactive) 03/31/21 Hepatitis B Surface Antigen Neg (Neg) 03/31/21 HIV (1&2) Ab and P24 Ag, 4th Gener Neg (Neg) 03/31/21 Maternal Serum Alpha Fetoprotein 43.3 ng/mL 06/18/21 OB Optional Labs: Chlamydia trachomatis RNA NOT DETECTED (NOT DETECTED) 03/31/21 Neisseria gonorrhoeae RNA NOT DETECTED (NOT DETECTED) 03/31/21 Alpha Fetoprotein Triple Screen SEE NOTE 11/18/21 Labs Reviewed: CF/SMA negative in prior (06/28/17) low risk panorama--ak afp neg--[facility] Allergies Allergy/AdvReac Type Severity Reaction Status Date / Time No Known Allergies Allergy Verified 11/09/21 10:50 Home Medications Medication Instructions Recorded Confirmed Type albuterol sulfate 2.5 mg/0.5 mL 2.5 mg INH Q4H PRN #30 ea 07/19/19 11/09/21 Rx solution for nebulization ferrous sulfate 325 mg (65 mg 325 mg PO DAILY 01/02/20 11/09/21 History iron) tablet (FeroSul) BFA80-TE 400 mcg-om3 35 mg-dha 25 tab PO 03/27/21 11/09/21 History mg-epa 5 mg-fish oil chewable tablet acetone (urine) test (Ketone Urine #50 ea 04/09/21 11/09/21 Rx Test) blood sugar diagnostic (OneTouch #150 ea 04/09/21 11/09/21 Rx Verio test strips) blood-glucose meter (OneTouch #1 ea 04/09/21 11/09/21 Rx Verio Flex meter) lancets 33 gauge (OneTouch Delica #150 ea 04/09/21 11/09/21 Rx Plus Lancet) ondansetron HCl 4 mg tablet 4 mg PO Q6H PRN #30 tab 04/14/21 11/09/21 Rx (Zofran) budesonide-formoterol HFA 160 2 puff INHALATION BID #1 inhaler 07/23/21 11/09/21 Rx mcg-4.5 mcg/actuation aerosol inhaler (Symbicort) tiotropium bromide 1.25 2 puff INHALATION DAILY #4 g 08/11/21 11/09/21 Rx mcg/actuation mist for inhalation (Spiriva Respimat) omalizumab 150 mg subcutaneous 150 mg SUBCUT .COMPLEX #1 ea 08/26/21 11/09/21 Rx solution dextromethorphan-guaifenesin 10 10 ml PO Q6H PRN #237 ml 09/09/21 11/09/21 Rx mg-100 mg/5 mL oral liquid prednisone 20 mg tablet 20 mg PO .as directed #15 tab 09/09/21 11/09/21 Rx insulin NPH isoph U-100 human 100 10 unit SUBCUT QPM #10 ml 10/01/21 11/09/21 Rx unit/mL subcutaneous suspension (Novolin N NPH U-100 Insulin isophane) insulin regular human 100 unit/mL 8 unit SUBCUT TID #10 ml 10/01/21 11/09/21 Rx injection solution (Novolin R Regular U-100 Insulin) insulin syringe-needle U-100 0.5 #150 ea 10/01/21 11/09/21 Rx mL 31 gauge x 5/16" (BD Insulin Syringe Ultra-Fine) prednisone 10 mg tablet See Rx Instructions PO .COMPLEX 15 10/19/21 11/09/21 Rx Days #60 tab Patient History Medical History Acute respiratory failure with hypoxia Asthma exacerbation Depression HARMON (dyspnea on exertion) DVT prophylaxis History of chicken pox Low lying placenta without hemorrhage, antepartum Pneumonia Status asthmaticus Variable heart rate decelerations, antepartum Wheezing Family History Mother Thyroid disease Family/Other Down syndrome Other No significant family history Social History Smoking Status: Never smoker Second Hand Exposure: No; Hx Alcohol Use: No Hx Substance Use: No Preferred Language: Croatian Communication Ability: Effective Capacity Planning Engineer Required: No Beliefs That Will Affect Care: None marital status: Single marital status details: mitchell Pierce (24) [phone] Current Living Situation: Family and Significant Other Current Living Situation Comment: lives with focandelaria,3 children, 1 dog current occupational status: unemployed 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 Date GA wks Lbr Lgth wt Sex Type del Anes Place Del Prov ? Comment 07/13/16 41 9 8-5 M Epidu ral Other [facility] No 08/09/17 40 6 7-13 F Epid ural [facility] Dr. Rhoades No blood transfusion after delivery-Severe anemia/GDM 02/25/20 39 8lb 0oz M Epidu ral [facility] Dr. Devine No GDM [facility] History noncontributory Physical Exam Constitutional: WD/WN, vitals as above Gastrointestinal (Abdomen): soft, gravid, nt Psychiatric: A+Ox3, euthymic affect Genitourinary: cx--/75/-2/post/soft, efw 8-9# toco--rare contraction efm--130s with mod variability, accels to 150s, no decels Results & Data ([facility]) Vital Signs (Past 12 Hours) Vital Signs Pulse BP 11/10/21 07:43 92 H 122/70 Coding Level of Care Code None Diagnoses with 39 completed weeks gestation Z3A.39 Insulin controlled gestational diabetes mellitus (GDM) during O24.414 Severe persistent asthma, poorly-controlled J45.50
[2021-11-10 08:25] LABS: Hematocrit (blood only) 34.2 % (37-47); Hemoglobin 11.9 g/dL (12.0-16.0); Mean Corpuscular Hemoglobin 28.9 pg (25-34); Mean Corpuscular Hgb Conc 34.8 g/dL (32-36); Mean Platelet Volume 9.8 fL (7.4-10.4); Platelet Count 220 K/uL (130-400); RDW Coefficient of Variation 19.4 % (11.5-14.5); RDW Standard Deviation 59.3 fL (36.4-46.3); Red Blood Count 4.12 M/uL (4.2-5.4); White Blood Count 7.73 K/uL (4.8-10.8)
[2021-11-10] MEDS: LACTATED RINGER'S 1,000 ML IV PRN ×3 (08:28→13:53)
[2021-11-10] MEDS ORDERED: fentaNYL citrate 100 MCG/2 ML VIAL ONE (11:08)
[2021-11-10] MEDS ORDERED: BUPIVACAINE 0.25% 30 ML VIAL ONE (11:08)
[2021-11-10] MEDS ORDERED: ePHEDrine sulfate 50 MG/ML AMP ONE (11:08)
[2021-11-10] MEDS ORDERED: SODIUM CHLORIDE 0.9% INJ 10 ML VIAL ONE (11:08)
[2021-11-10] MEDS ORDERED: fentaNYL 2MCG/ML ROPIVACAINE 1.25MG/ML 100 ML BAG EPI ONE (11:09)
--- NOTE | 2021-11-10 11:39 | Anesthesiology Consultation ---
Date of Service November 10, 2021 Assessment & Plan Chart Review Chart Review: Patient NOT seen in Pre Admission Testing and Acceptable Risk for Labor Epidural Consults Requested none ASA ASA3 Proposed Anesthesia Anesthesia Type: Labor Epidural and CSE Risk / Benefits Reviewed With: PT / POA / Parent / Guardian, Accepts Plan and Informed Consent Obtained History Height/Weight Height: 5 ft 3 in Weight: 86.364 kg Allergies Allergy/AdvReac Type Severity Reaction Status Date / Time No Known Allergies Allergy Verified 11/09/21 10:50 Medications Home Medications Medication Instructions Recorded Confirmed Last Taken acetone (urine) test (Ketone Urine #50 ea 04/09/21 11/09/21 Unknown Test) blood sugar diagnostic (OneTouch #150 ea 04/09/21 11/09/21 Unknown Verio test strips) blood-glucose meter (anydooRTouch #1 ea 04/09/21 11/09/21 Unknown Verio Flex meter) lancets 33 gauge (OneTouch Delica #150 ea 04/09/21 11/09/21 Unknown Plus Lancet) budesonide-formoterol HFA 160 2 puff INHALATION BID #1 inhaler 07/23/21 11/10/21 11/08/21 08:00 mcg-4.5 mcg/actuation aerosol inhaler (Symbicort) tiotropium bromide 1.25 2 puff INHALATION DAILY #4 g 08/11/21 11/10/21 11/08/21 08:00 mcg/actuation mist for inhalation (Spiriva Respimat) insulin NPH isoph U-100 human 100 10 unit SUBCUT QPM #10 ml 10/01/21 11/10/21 11/09/21 23:00 unit/mL subcutaneous suspension (Novolin N NPH U-100 Insulin isophane) insulin syringe-needle U-100 0.5 #150 ea 10/01/21 11/09/21 Unknown mL 31 gauge x 5/16" (BD Insulin Syringe Ultra-Fine) prenat.vits,asia,rzh-fbnk-jvrmb 1 tab PO DAILY 11/10/21 11/10/21 11/09/21 08:00 Active Medications Generic Name Dose Route Start Last Admin Trade Name Freq PRN Reason Stop Dose Admin Oxytocin 30 units in 500 mls @ 11 mls/hr 11/10/21 07:41 11/10/21 11:00 Pitocin IV 11/12/21 07:40 0.66 units/hr .Q24H PRN 11 mls/hr Labor Induction/Augmentation Titration Protocol 0.66 UNITS/HR Lactated Ringer's 1,000 mls @ 125 mls/hr 11/10/21 07:39 11/10/21 11:05 Lr IV 11/12/21 07:38 999 mls/hr .Q8H PRN Infusion L&D Protocol Protocol NPO Date Last Intake of Fluids: 11/10/21 Time Last Intake of Fluids: 10:00 Date Last Intake of Solids: 11/09/21 Time Last Intake of Solids: 19:00 Past Medical History Medical History Acute respiratory failure with hypoxia January 2019-hospitalization Asthma exacerbation Depression no medications HARMON (dyspnea on exertion) asthma DVT prophylaxis History of chicken pox Low lying placenta without hemorrhage, antepartum resolved Migraines Pneumonia Status asthmaticus Variable heart rate decelerations, antepartum Wheezing asthma Exercise / Class Metabolic Activity II 4-5 Yardwork/Stairs/Walk up hill Past Family History Family History Mother Thyroid disease Family/Other Down syndrome Other No significant family history Past Anesthesia History No Hx of Anesthesia Complications and No Family Hx of Anesthesia Complications History of PONV No Hx of PONV and No Hx of Motion Sickness Social History Smoking Status: Never smoker Hx Alcohol Use: No Hx Substance Use: No substance use type: does not use Review of Systems no chest pain or sob Physical Exam Vital Signs Last Vital Signs Temp 36.7 C 11/10/21 11:05 Pulse 82 11/10/21 11:37 Resp 20 11/10/21 11:05 BP 105/59 L 11/10/21 11:35 Pulse Ox 97 11/10/21 11:37 ENMT Mouth: no TMJ abnormality Thyromental Distance: > or= 3.5 Finger Breadths Mallampati Class: II Neck normal visual inspection Respiratory normal respiratory effort Auscultation: lungs clear to auscultation bilaterally Cardiovascular Rate/Rhythm: regular rate and regular rhythm Musculoskeletal Spine: normal cervical ROM Neurologic moves all extremities Psychiatric Orientation: alert and oriented x 3 Testing Laboratory Results 11/10/21 08:02 Blood Type O Positive 11/10/21 08:02 Antibody Screen NEGATIVE 11/10/21 08:02 11/10/21 08:17 POC Glucose 77
[2021-11-10] MEDS ORDERED: ONDANSETRON INJ 2 MG/ML 2 ML VIAL IV PRN (11:40)
[2021-11-10] MEDS ORDERED: diphenhydrAMINE 50 MG/ML VIAL IV PRN (11:40)
[2021-11-10] MEDS ORDERED: NALOXONE HCL 0.4 MG/1 ML VIAL/CARP IV PRN (11:40)
[2021-11-10] MEDS ORDERED: NALBUPHINE HCL INJ 10 MG/ML AMP IV PRN (11:40)
[2021-11-10] MEDS ORDERED: fentaNYL 2MCG/ML ROPIVACAINE 1.25MG/ML 100 ML BAG EPI PRN (11:40)
[2021-11-10] MEDS ORDERED: NALOXONE HCL 1 MG in SODIUM CHLORIDE 0.9% 1000ML 1,000 ML IV PRN (11:40)
[2021-11-10] MEDS: ePHEDrine sulfate 50 MG/ML AMP IV PRN ×2 (12:34→13:35)
[2021-11-10] MEDS ORDERED: bisacodyL 10 MG SUPP PR PRN (16:17)
[2021-11-10] MEDS ORDERED: BENZOCAINE 20% AER SPR 82.5 GM CAN EXT PRN (16:17)
[2021-11-10] MEDS ORDERED: DIPHTHERIA/TETANUS/PERTUSSIS 0.5 ML SYR/VIAL IM ONE (16:17)
[2021-11-10] MEDS ORDERED: ACETAMINOPHEN 325 MG TAB PO PRN (16:17)
[2021-11-10] MEDS ORDERED: HYDROCORTISONE ACETATE 25 MG SUPP PR PRN (16:17)
[2021-11-10] MEDS: IBUPROFEN 600 MG TAB PO PRN ×2 (16:37→21:12)
--- NOTE | 2021-11-10 17:30 | Delivery Summary ---
Vaginal Delivery Summary Date of Service November 10, 2021 Vaginal Delivery Summary Patient is a 21-year old white female 4 para 3-0-0-3 EDC of 11/16/2021 presents for induction of labor because of gestational diabetes on insulin. She had a cervical balloon placed the night prior to the induction because of an unfavorable cervix. This morning, Pitocin augmentation was begun. She requested epidural analgesia which was effective. Membranes ruptured for clear fluid. She progressed to full dilation and pushed through 2 contractions for delivery of a viable male infant over intact perineum. The rest of the infant was delivered easily and placed on mother's abdomen for further attention and drying. The infant was vigorous and moving all 4 limbs. After 1 minute the cord was clamped and cut. The placenta was then expressed intact with a three- vessel cord. bleeding was controlled with dilute Pitocin and fundal massage. There is a superficial abrasion on the right labia minora which was not bleeding and therefore not repaired. Estimated blood loss was 300 cc. Mother and infant were doing well after delivery. [facility] Vaginal Delivery Charge Delivery Type Details: [facility]
--- NOTE | 2021-11-10 17:36 | Anesthesia Procedure Note ---
Date of Service November 10, 2021 Anesthesia Post Epidural Note Vital Signs Vital Signs: Temp Pulse Resp BP Pulse Ox 36.6 C 78 20 110/59 L 97 11/10/21 16:18 11/10/21 17:33 11/10/21 17:18 11/10/21 17:33 11/10/21 16:12 Pain Intensity Abdomen: Pain Intensity: 2 Notes Mental Status: alert / awake / arousable and participated in evaluation Nausea / Vomiting: adequately controlled Pain: adequately controlled Airway Patency, RR, SpO2: stable & adequate BP & HR: stable & adequate Hydration State: stable & adequate Neuraxial Anesthesia: was administered and sensory block is resolving Anesthetic Complications: no major complications apparent and Pt Satisfied with anesthetic care Epidural: Removed without complications and With tip intact
[2021-11-10] MEDS: DOCUSATE SODIUM 100 MG CAP PO SCH (21:12)
[2021-11-11] MEDS: IBUPROFEN 600 MG TAB PO PRN ×4 (03:04→23:48)
[2021-11-11 06:45] LABS: Hematocrit (blood only) 30.5 % (37-47); Hemoglobin 9.8 g/dL (12.0-16.0); Mean Corpuscular Hemoglobin 27.5 pg (25-34); Mean Corpuscular Hgb Conc 32.1 g/dL (32-36); Mean Corpuscular Volume 85.7 fL (80-100); Mean Platelet Volume 10.4 fL (7.4-10.4); Platelet Count 182 K/uL (130-400); RDW Coefficient of Variation 19.5 % (11.5-14.5); RDW Standard Deviation 60.5 fL (36.4-46.3); Red Blood Count 3.56 M/uL (4.2-5.4); White Blood Count 7.66 K/uL (4.8-10.8)
--- NOTE | 2021-11-11 07:39 | Obstetrical Progress Note ---
Date of Service <Pamella Escobar DO - Last Filed: 11/11/21 07:39> November 11, 2021 Assessment & Plan <Pamella Escobar DO - Last Filed: 11/11/21 07:39> (1) Encounter for care and examination after delivery: 21 yo post op day1 from [facility] GDM asthma migraines, doing well. -Continue routine post care. -vital signs reviewed and WNL (Tmax 36.7) -Blood Type O+, GBS-, Rubella Immune -Encourage ambulation, monitor and control pain with Motrin, tylenol PRN, resume regular diet, monitor lochia -encourage breast feeding -hemoglobin 9.8 -ordered furoset for migraines Day #:: 1 <Bertha Wilson MD, FACOG - Last Filed: 11/11/21 07:43> (1) Encounter for care and examination after delivery: Subjective <Pamella Escobar DO - Last Filed: 11/11/21 07:39> Ambulation: limited ambulation (Has not tried) Voiding: no incontinence (has not tried voiding yet) Passing Gas:: Yes Diet Tolerance:: regular diet Lochia:: Moderate Feeding Type:: breast feeding Current Pain Level(1-10): 0 Review of Systems Positive headache Denies fever, chills, sweats Denies shortness of breath, difficulty breathing, chest pain, palpitations, chest pressure. Denies breast pain. Denies dysuria. Denies changes in vision. Physical Exam <Pamella Escobar DO - Last Filed: 11/11/21 07:39> General: Alert, oriented. No acute distress. Cardiac: Regular rate and rhythm, no murmurs/rubs/gallops. Respiratory: Clear to auscultation bilaterally a/p, no wheezes/rales/rhonchi. No increased work of breathing. Symmetrical chest rise. No respiratory distress. Abdomen: Soft, nontender, nondistended. Bowel sounds present. Uterus: Uterine fundus firm, palpable at umbilicus. Lower Extremities: No lower extremity edema or swelling. No deep calf pain. Jovon's negative bilaterally.. Results & Data ([facility]) <Pamella Escobar DO - Last Filed: 11/11/21 07:39> Vital Signs (Past 12 Hours) Vital Signs Temp Pulse Resp BP Pulse Ox 11/11/21 03:00 36.3 C L 67 16 100/63 98 11/10/21 23:30 36.5 C 68 16 90/56 L 98 <Bertha Wilson MD, FACOG - Last Filed: 11/11/21 07:43> Co-Signing Physician Notes Resident Physician Supervision Note: I was present with Dr. Escobar during the history and exam. I discussed the case with the resident and agree with the findings and plan as documented in the note. Any exceptions or clarifications are listed here: [None] Documented By: Bertha Wilson MD, FACOG Resident Activity Tracking <Pamella Escobar DO - Last Filed: 11/11/21 07:39> Resident Involvement: Resident Care Provided Care Provided: Adult Hospital Medicine and OB Delivery
[2021-11-11] MEDS: DOCUSATE SODIUM 100 MG CAP PO SCH ×2 (08:16→23:49)
[2021-11-11] MEDS: PRENATAL VITAMIN 1 TAB PO SCH (08:16)
[2021-11-11] MEDS: BUTALBITAL/ACETAMIN/CAFFEINE TAB PO PRN (08:17)
[2021-11-11] MEDS: FLUTICASONE/VILANTEROL 200/25MCG 14 PUFFS/INHALER INH SCH (08:18)
[2021-11-11] MEDS: UMECLIDINIUM BROMIDE 62.5MCG/BLISTER 7 PUFFS/INHALER INH SCH (08:19)
[2021-11-11] MEDS ORDERED: bisacodyL 5 MG TABEC PO SCH (20:00)
--- NOTE | 2021-11-12 06:21 | Obstetrical Progress Note ---
Date of Service <Pamella Escobar DO - Last Filed: 11/12/21 07:08> November 12, 2021 Assessment & Plan <Pamella Escobar DO - Last Filed: 11/12/21 07:08> (1) Encounter for care and examination after delivery: 21 yo post op day2 from [facility] GDM asthma migraines, doing well. -Continue routine post care. -vital signs reviewed and WNL (Tmax 37.1) -Blood Type O+, GBS-, Rubella Immune -Encourage ambulation, monitor and control pain with Motrin, tylenol PRN, resume regular diet, monitor lochia -encourage breast feeding with bottle supplementation -hemoglobin 9.8 -ordered furoset for migraines Day #:: 2 <Bobbi Das MD - Last Filed: 11/12/21 07:03> (1) Encounter for care and examination after delivery: Subjective <Pamella Escobar DO - Last Filed: 11/12/21 07:08> Ambulation: ambulating normally Voiding: no voiding problems Passing Gas:: Yes Diet Tolerance:: regular diet Lochia:: Small Feeding Type:: breast feeding (with bottle supplementation) Current Pain Level(1-10): 1 Review of Systems Positive headache improved with motrin Denies fever, chills, sweats Denies shortness of breath, difficulty breathing, chest pain, palpitations, chest pressure. Denies breast pain. Denies dysuria. Denies changes in vision. Physical Exam <Pamella Escobar DO - Last Filed: 11/12/21 07:08> General: Alert, oriented. No acute distress. Cardiac: Regular rate and rhythm, no murmurs/rubs/gallops. Respiratory: Clear to auscultation bilaterally a/p, no wheezes/rales/rhonchi. No increased work of breathing. Symmetrical chest rise. No respiratory distress. Abdomen: Soft, nontender, nondistended. Bowel sounds present. Uterus: Uterine fundus firm, palpable 2cm below umbilicus. Lower Extremities: No lower extremity edema or swelling. No deep calf pain. Jovon's negative bilaterally.. Results & Data ([facility]) <Pamella Escobar DO - Last Filed: 11/12/21 07:08> Vital Signs (Past 12 Hours) Vital Signs Temp Pulse Resp BP Pulse Ox 11/12/21 04:00 37.1 C 68 18 118/72 99 11/12/21 00:00 36.5 C 65 20 115/78 98 11/11/21 19:00 36.7 C 68 20 118/70 99 <Bobbi Das MD - Last Filed: 11/12/21 07:03> Co-Signing Physician Notes Resident Physician Supervision Note: I interviewed and examined the patient. Discussed with Dr. Escobar and agree with findings and plan as documented in the note. Any exceptions or clarifications are listed here: day 2 and will be for discharge today. Patient is asking for depo provera prior to discharge, which we can provide. History of migraines and has found improvement here with addition of fioricet to her regimen yesterday. Documented By: Bobbi Das MD, FACOG Resident Activity Tracking <Pamella Escobar DO - Last Filed: 11/12/21 07:08> Resident Involvement: Resident Care Provided Care Provided: Adult Hospital Medicine and OB Delivery
[2021-11-12 07:03] LABS: Hemoglobin 10.2 g/dL (12.0-16.0)
[2021-11-12] MEDS: IBUPROFEN 600 MG TAB PO PRN (08:42)
[2021-11-12] MEDS: DOCUSATE SODIUM 100 MG CAP PO SCH (08:42)
[2021-11-12] MEDS: PRENATAL VITAMIN 1 TAB PO SCH (08:42)
[2021-11-12] MEDS: BUTALBITAL/ACETAMIN/CAFFEINE TAB PO PRN (08:43)
[2021-11-12] MEDS: FLUTICASONE/VILANTEROL 200/25MCG 14 PUFFS/INHALER INH SCH (08:44)
[2021-11-12] MEDS: UMECLIDINIUM BROMIDE 62.5MCG/BLISTER 7 PUFFS/INHALER INH SCH (08:44)
== END 2021-11-12 10:40 | disposition home or self-care (01) | DRG 806 ==
LOC: 4S1 07:36 → 4E2 19:09
DX: Z3A.39 39 weeks gestation of pregnancy; Z37.0 Single live birth; O99.354 Diseases of the nervous system complicating childbirth; O99.519 Diseases of the respiratory system complicating pregnancy, unspecified trimester; G43.909 Migraine, unspecified, not intractable, without status migrainosus; O24.414 Gestational diabetes mellitus in pregnancy, insulin controlled; J45.50 Severe persistent asthma, uncomplicated

== ENCOUNTER 2024-01-25 14:56 | Inpatient (IN) ==
[2024-01-25] MEDS ORDERED: LIDOCAINE 1% LOCAL 20 ML VIAL INFIL PRN (21:12)
[2024-01-25] MEDS ORDERED: OXYTOCIN 30 UNITS/NSS 30 UNITS/500 ML BAG IV PRN (21:12)
[2024-01-25] MEDS: LACTATED RINGER'S 1,000 ML IV PRN (21:53)
[2024-01-25 21:56] LABS: Hematocrit (blood only) 30.1 % (37.0-47.0); Hemoglobin 9.2 g/dl (12.0-16.0); Mean Corpuscular Hgb Conc 30.6 g/dL (32.0-36.0); Mean Corpuscular Volume 75.3 fL (80.0-100.0); Mean Platelet Volume 10.8 fL (9.4-12.4); Platelet Count 228 K/uL (130-400); RDW Coefficient of Variation 16.2 % (11.5-14.5); RDW Standard Deviation 43.9 fL (36.4-46.3); White Blood Count 8.69 K/ul (4.8-10.8)
--- NOTE | 2024-01-25 22:09 | History & Physical Report ---
Date of Service January 25, 2024 Assessment & Plan (1) Encounter for supervision of normal in multigravida: Plan: Admit to L&D. EFM/toco. Labs. Glucose Q1h. Will initiate insulin protocol if needed. Plans for pitocin, epidural and AROM. Admission and Anticipated Discharge Date Admission Date: January 25, 2024 History of Present Illness Chief Complaint: IOL Primary Care Provider: SANJANA PCP 23yo @ 39 0/7, induction of labor for GDMA2. Allergies Allergy/AdvReac Type Severity Reaction Status Date / Time No Known Allergies Allergy Verified 01/25/24 21:39 Home Medications Medication Instructions Recorded Confirmed Type budesonide-formoterol HFA 160 2 puff inhalation BID #1 inhaler 07/23/21 01/25/24 Rx mcg-4.5 mcg/actuation aerosol inhaler (Symbicort) digital therapeutic,SETH device #1 ea 09/07/23 01/24/24 Rx acetone (urine) test (Ketone Urine #50 ea 10/17/23 01/24/24 Rx Test strips) blood sugar diagnostic (OneTouch #150 ea 10/17/23 01/24/24 Rx Verio test strips) blood-glucose meter (OneTouch #1 ea 10/17/23 01/24/24 Rx Verio Reflect Meter) lancets 33 gauge (OneTouch Delica #150 ea 10/17/23 01/24/24 Rx Plus Lancet) escitalopram oxalate 5 mg tablet 5 mg PO DAILY #30 tabs 12/15/23 01/25/24 Rx (Lexapro) pen needle, diabetic 32 gauge x #50 ea 01/06/24 01/24/24 Rx 5/32" (BD Roopa 2nd Gen Pen Needle) vits no.124-ferrous fum 1 tab PO DAILY 01/10/24 01/25/24 History 27 mg iron-folic acid 800 mcg tablet ( Vitamin) Patient History Medical History Migraines Diet controlled gestational diabetes mellitus in third trimester Supervision of young multigravida in third trimester Post term over 40 weeks Encounter for care and examination after delivery Migraines with 39 completed weeks gestation Insulin controlled gestational diabetes mellitus (GDM) during Low lying placenta without hemorrhage, antepartum resolved Wheezing asthma HARMON (dyspnea on exertion) asthma History of chicken pox Asthma exacerbation Acute respiratory failure with hypoxia January 2019-hospitalization DVT prophylaxis Status asthmaticus Pneumonia Variable heart rate decelerations, antepartum Surgical History No history of previous surgery Family History Mother Thyroid disease Family/Other Down syndrome Other No significant family history Denies family history of Ovarian cancer Prostate cancer Breast cancer Colorectal cancer Social History Smoking Status: Never smoker Second Hand Exposure: No; Do You Dip or Chew Tobacco: No; Hx Alcohol Use: No Hx Substance Use: No Preferred Language: Lao Communication Ability: Effective Hair Baler Required: No Beliefs That Will Affect Care: None marital status: marital status details: mitchell Pierce ([phone]) [phone] Current Living Situation: Spouse Current Living Situation Comment: Lives with MITCHELL and 4 children current occupational status: unemployed 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 Other Information That Helps Us Care for You: No Feels Safe at Home: Yes Safety Concerns: Feels Safe At This Time Diet: regular Gender Identity: Female Assistive Devices: Contacts and Glasses Review of Systems All systems reviewed & are unremarkable except as noted in HPI & below Physical Exam Physical Exam: 70/-2 FHT Cat 1 Tok none Constitutional: WD/WN, vitals as above Respiratory: normal respiratory effort, lungs clear to auscultation no respiratory distress Cardiovascular: Rate/Rhythm: regular rate and regular rhythm Gastrointestinal (Abdomen): Inspection/Auscultation: abdomen normal to inspection Percussion/Palpation: abdomen soft; abdomen nontender Gravid. No s/s chorio or abruption. Skin: no rashes, warm and dry Psychiatric: A+Ox3, euthymic affect Results & Data Vital Signs (Past 12 Hours) Vital Signs Temp Pulse Resp BP 01/25/24 21:27 36.7 C 18 01/25/24 21:19 94 H 119/62 Coding Level of Care Code None Diagnoses Encounter for supervision of normal in multigravida Z34.80
[2024-01-25] MEDS ORDERED: DEXTROSE 50% 50 ML SYRINGE IV PRN (22:19)
[2024-01-25] MEDS ORDERED: SODIUM CHLORIDE 0.9% 1,000 ML IV PRN (22:19)
[2024-01-25] MEDS ORDERED: INSULIN REGULAR 250 UNITS in SODIUM CHLORIDE 0.9% 247.5 ML IV PRN (22:19)
[2024-01-25] MEDS ORDERED: DEXTROSE 5% 1,000 ML IV PRN (22:19)
[2024-01-25] MEDS: OXYTOCIN 30 UNITS/NSS 30 UNITS/500 ML BAG IV PRN (22:42)
[2024-01-26] MEDS: fentANYL 2 MCG/ML BUPIVacaine 0.125%-NSS 100ML BAG ONE (01:36)
[2024-01-26] MEDS: BUPIVACAINE 0.25% PF 30 ML VIAL ONE (01:40)
[2024-01-26] MEDS: LIDOCAINE 2%/EPINEPHRINE 1:200,000 20 ML PF ONE (01:40)
[2024-01-26] MEDS: SODIUM CHLORIDE 0.9% PF INJ 10 ML VIAL ONE (01:40)
[2024-01-26] MEDS ORDERED: NALOXONE HCL 1 MG in SODIUM CHLORIDE 0.9% 1,000 ML IV PRN (01:41)
[2024-01-26] MEDS ORDERED: fentaNYL citrate PF 100 MCG/2 ML VIAL EPI PRN (01:41)
[2024-01-26] MEDS ORDERED: NALOXONE HCL 0.4 MG/1 ML VIAL/CARP IV PRN (01:41)
[2024-01-26] MEDS ORDERED: SODIUM CHLORIDE 0.9% PF INJ 10 ML VIAL EPI PRN (01:41)
[2024-01-26] MEDS ORDERED: ePHEDrine sulfate 50 MG/ML AMP IV PRN (01:41)
[2024-01-26] MEDS ORDERED: PROMETHAZINE HCL 6.25 MG in SODIUM CHLORIDE 0.9% 50 ML IV PRN (01:41)
[2024-01-26] MEDS ORDERED: NALBUPHINE HCL 5 MG in SYRINGE 0 ML IV PRN (01:41)
[2024-01-26] MEDS ORDERED: LIDOCAINE 2% MPF LOCAL 5 ML VIAL EPI PRN (01:41)
[2024-01-26] MEDS ORDERED: diphenhydrAMINE 50 MG/ML VIAL IV PRN (01:41)
[2024-01-26] MEDS ORDERED: ROPIVACAINE 0.5% PF 5 MG/ML 20 ML VIAL EPI PRN (01:41)
[2024-01-26] MEDS ORDERED: BUPIVACAINE 0.25% PF 30 ML VIAL EPI PRN (01:41)
[2024-01-26] MEDS ORDERED: fentANYL 2 MCG/ML BUPIVacaine 0.125%-NSS 100ML BAG EPI PRN (01:41)
--- NOTE | 2024-01-26 01:41 | Anesthesiology Consultation ---
Date of Service January 26, 2024 Assessment & Plan Chart Review Chart Review: Patient NOT seen in Pre Admission Testing and Acceptable Risk for Labor Epidural Consults Requested none ASA ASA2 Proposed Anesthesia Anesthesia Type: Labor Epidural Risk / Benefits Reviewed With: PT / POA / Parent / Guardian, Accepts Plan and Informed Consent Obtained History Height/Weight Height: 5 ft 3 in Weight: 81.647 kg Allergies Allergy/AdvReac Type Severity Reaction Status Date / Time No Known Allergies Allergy Verified 01/25/24 21:39 Medications Home Medications Medication Instructions Recorded Confirmed Last Taken budesonide-formoterol HFA 160 2 puff inhalation BID #1 inhaler 07/23/21 01/25/24 11/08/21 08:00 mcg-4.5 mcg/actuation aerosol inhaler (Symbicort) digital therapeutic,SETH device #1 ea 09/07/23 01/24/24 Unknown acetone (urine) test (Ketone Urine #50 ea 10/17/23 01/24/24 Unknown Test strips) blood sugar diagnostic (OneTouch #150 ea 10/17/23 01/24/24 Unknown Verio test strips) blood-glucose meter (OneTouch #1 ea 10/17/23 01/24/24 Unknown Verio Reflect Meter) lancets 33 gauge (OneTouch Delica #150 ea 10/17/23 01/24/24 Unknown Plus Lancet) escitalopram oxalate 5 mg tablet 5 mg PO DAILY #30 tabs 12/15/23 01/25/24 01/24/24 (Lexapro) pen needle, diabetic 32 gauge x #50 ea 01/06/24 01/24/24 Unknown 532" (BD Roopa 2nd Gen Pen Needle) vits no.124-ferrous fum 1 tab PO DAILY 01/10/24 01/25/24 01/25/24 27 mg iron-folic acid 800 mcg tablet ( Vitamin) Active Medications Generic Name Dose Route Start Last Admin Trade Name Freq PRN Reason Stop Dose Admin Oxytocin 30 units in 500 mls @ 7 mls/hr 01/25/24 21:12 01/26/24 00:30 Pitocin 30 Units/Nss IV 01/27/24 21:11 0.42 units/hr .Q24H PRN 7 mls/hr Labor Induction/Augmentation Titration Protocol 0.42 UNITS/HR Lactated Ringer's 1,000 mls @ 125 mls/hr 01/25/24 21:12 01/26/24 00:30 Lr IV 01/27/24 21:11 999 mls/hr .Q8H PRN Infusion L&D Protocol Protocol Past Medical History Medical History Migraines Diet controlled gestational diabetes mellitus in third trimester Supervision of young multigravida in third trimester Post term over 40 weeks Encounter for care and examination after delivery Migraines with 39 completed weeks gestation Insulin controlled gestational diabetes mellitus (GDM) during Low lying placenta without hemorrhage, antepartum resolved Wheezing asthma HARMON (dyspnea on exertion) asthma History of chicken pox Asthma exacerbation Acute respiratory failure with hypoxia January 2019-hospitalization DVT prophylaxis Status asthmaticus Pneumonia Variable heart rate decelerations, antepartum Exercise / Class Metabolic Activity II 4-5 Yardwork/Stairs/Walk up hill Past Family History Family History Mother Thyroid disease Family/Other Down syndrome Other No significant family history Denies family history of Ovarian cancer Prostate cancer Breast cancer Colorectal cancer Past Surgical History Surgical History No history of previous surgery Past Anesthesia History No Hx of Anesthesia Complications and No Family Hx of Anesthesia Complications History of PONV No Hx of PONV and No Hx of Motion Sickness Social History Smoking Status: Never smoker Do You Dip or Chew Tobacco: No Hx Alcohol Use: No Hx Substance Use: No substance use type: does not use Physical Exam Vital Signs Last Vital Signs Temp 36.7 C 01/25/24 23:31 Pulse 88 01/26/24 01:39 Resp 18 01/25/24 23:31 BP 90/54 L 01/26/24 01:39 Pulse Ox 99 01/26/24 01:38 ENMT Mouth: no dentition abnormality Thyromental Distance: > or= 3.5 Finger Breadths Mallampati Class: II Neck normal visual inspection Respiratory normal respiratory effort Auscultation: lungs clear to auscultation bilaterally Cardiovascular Rate/Rhythm: regular rate and regular rhythm Psychiatric Orientation: alert Testing Laboratory Results 01/25/24 21:38 Blood Type O Positive 01/25/24 21:38 Antibody Screen NEGATIVE 01/25/24 21:38 01/26/24 01/26/24 01/25/24 00:59 00:00 22:26 POC Glucose 79 76 96 01/25/24 21:26 POC Glucose 128 H
[2024-01-26] MEDS: ePHEDrine sulfate 50 MG/ML AMP ONE (01:42)
[2024-01-26] MEDS: fentaNYL citrate PF 100 MCG/2 ML VIAL ONE (01:44)
[2024-01-26] MEDS: fentaNYL citrate PF 100 MCG/2 ML VIAL EPI STA (02:43)
[2024-01-26] MEDS: BUPIVACAINE 0.25% PF 30 ML VIAL EPI STA (02:43)
[2024-01-26] MEDS: LIDOCAINE 2%/EPINEPHRINE 1:200,000 20 ML PF EPI STA (02:44)
[2024-01-26] MEDS: SODIUM CHLORIDE 0.9% PF INJ 10 ML VIAL EPI STA (02:44)
[2024-01-26] MEDS: ONDANSETRON INJ 2 MG/ML 2 ML VIAL IV PRN (04:12)
--- NOTE | 2024-01-26 04:14 | Labor Progress Brief Note ---
Date of Service January 26, 2024 Subjective Late note d/t [employer] down. AROM meconium stained fluid. Cervix unchanged. FHT Cat 1, low baseline that has persisted throughout . Assessment & Plan Admission and Anticipated Discharge Date Admission Date: January 25, 2024 Results & Data Vital Signs (Past 12 Hours) Vital Signs Temp Pulse Resp BP Pulse Ox 01/26/24 04:08 86 98 01/26/24 04:05 85 103/57 L 01/26/24 04:03 107 H 96 01/26/24 04:01 97 H 91 01/26/24 04:00 92 H 102/58 L 01/26/24 03:58 99 H 98 01/26/24 03:53 89 96 01/26/24 03:51 101 H 92 01/26/24 03:48 77 96 01/26/24 03:43 93 H 92/51 L 94 01/26/24 03:38 74 95 01/26/24 03:33 72 96 01/26/24 03:29 71 93/51 L 01/26/24 03:28 77 94 01/26/24 03:24 74 94 01/26/24 03:23 79 95 01/26/24 03:18 76 95 01/26/24 03:14 71 92/51 L 01/26/24 03:13 78 96 01/26/24 03:08 80 97 01/26/24 03:03 91 H 98 01/26/24 02:59 87 90/52 L 94 01/26/24 02:58 85 94 01/26/24 02:53 84 96 01/26/24 02:48 89 96 01/26/24 02:44 87 97/52 L 01/26/24 02:43 87 96 01/26/24 02:38 76 96 01/26/24 02:33 85 98 01/26/24 02:29 83 97/54 L 01/26/24 02:28 83 98 01/26/24 02:23 79 97 01/26/24 02:18 78 98 01/26/24 02:14 81 102/54 L 01/26/24 02:13 87 98 01/26/24 02:08 82 98 01/26/24 02:03 98 H 98 01/26/24 02:02 18 01/26/24 02:02 36.6 C 18 01/26/24 01:58 99 01/26/24 01:58 108 H 01/26/24 01:58 82 91/51 L 01/26/24 01:54 93 H 97/53 L 01/26/24 01:53 88 99 01/26/24 01:48 82 99 01/26/24 01:47 74 92/52 L 01/26/24 01:45 71 18 91/53 L 01/26/24 01:43 97 01/26/24 01:43 76 01/26/24 01:43 70 86/51 L 01/26/24 01:42 81 87/48 L 01/26/24 01:41 74 88/51 L 01/26/24 01:40 20 01/26/24 01:40 20 01/26/24 01:39 88 90/54 L 01/26/24 01:38 80 99 01/26/24 01:37 67 102/53 L 01/26/24 01:35 68 18 110/58 L 01/26/24 01:33 79 99 01/26/24 01:31 64 125/77 01/26/24 01:28 70 99 01/26/24 01:21 71 100 01/26/24 01:16 76 100 01/26/24 01:11 73 100 01/26/24 01:06 81 100 01/26/24 01:01 85 99 01/26/24 00:58 71 112/60 01/26/24 00:56 72 99 01/26/24 00:51 76 99 01/26/24 00:46 78 99 01/25/24 23:31 36.7 C 77 18 101/59 L 01/25/24 21:27 36.7 C 18 01/25/24 21:19 94 H 119/62 Coding Level of Care Code None
--- NOTE | 2024-01-26 04:58 | Delivery Summary ---
Vaginal Delivery Summary Date of Service January 26, 2024 Vaginal Delivery Summary [facility] Vaginal Delivery Summary: Pre-delivery diagnoses: 23yo @ 39 08/07, IOL for GDMA2 Post-delivery diagnoses: same Procedure: spontaneous vaginal delivery Surgeon: Susie Devine DO Complications: none Findings: Viable female . Apgars: 8/9 . Weight pending, please see nursery records Estimated QBL: 100ml + 6 partially blood soaked raytec sponges, please see nursing documentation for est QBL number. Description of delivery: The patient progressed to complete with epidural anesthesia. She then began to push. She spontaneously vaginally delivered a viable from the cephalic presentation. The head delivered in DEBRA position. The anterior shoulder delivered, followed by the posterior shoulder, followed by the body. Nuchal x 1, easily reduced. The baby was placed on mother's abdomen and a spontaneous cry was heard. Delayed cord clamping was employed, and the cord was doubly clamped and cut. Cord blood was obtained. The placenta was delivered spontaneously intact with a 3-vessel cord. The uterus and vagina were swept of clots and debris. IV pitocin was given. The uterus became firm. The cervix, vagina, and perineum were inspected and no la cerations were noted. Excellent hemostasis was observed. The mother and baby are recovering in stable and good condition in the room. Sponge and instrument counts were correct x 2. Susie Devine DO [facility] Vaginal Delivery Charge Vaginal Delivery Codes: 11317 global code for the antepartum, delivery, and post- Delivery Type Details: [facility]
--- NOTE | 2024-01-26 05:10 | Anesthesia Procedure Note ---
Date of Service January 26, 2024 Anesthesia Post Epidural Note Vital Signs Vital Signs: Temp Pulse Resp BP Pulse Ox 36.4 C L 92 H 16 109/63 97 01/26/24 04:04 01/26/24 04:58 01/26/24 04:04 01/26/24 04:56 01/26/24 04:58 Notes Mental Status: alert / awake / arousable Nausea / Vomiting: adequately controlled Pain: adequately controlled Airway Patency, RR, SpO2: stable & adequate BP & HR: stable & adequate Hydration State: stable & adequate Neuraxial Anesthesia: was administered and sensory block is resolving Anesthetic Complications: no major complications apparent and Pt Satisfied with anesthetic care Epidural: Removed without complications and With tip intact
[2024-01-26] MEDS ORDERED: ACETAMINOPHEN 325 MG TAB PO PRN (05:43)
[2024-01-26] MEDS ORDERED: OXYTOCIN 30 UNITS/NSS 30 UNITS/500 ML BAG IV PRN (05:43)
[2024-01-26] MEDS ORDERED: oxyCODONE/ACETAMINOPHEN 5mg/325mg TAB PO PRN (05:43)
[2024-01-26] MEDS ORDERED: bisacodyL 10 MG SUPP PR PRN (05:43)
[2024-01-26] MEDS ORDERED: HYDROCORTISONE ACETATE 25 MG SUPP PR PRN (05:43)
[2024-01-26] MEDS: DOCUSATE SODIUM 100 MG CAP PO SCH (08:47)
[2024-01-26] MEDS: PRENATAL VITAMIN 1 TAB PO SCH (08:47)
[2024-01-26] MEDS: ESCITALOPRAM OXALATE 10 MG TAB PO SCH (08:48)
[2024-01-26] MEDS: FLUTICASONE/VILANTEROL 100/25MCG 14 PUFFS/INHALER INH SCH (08:48)
[2024-01-26] MEDS: DIPHTHER/TETAN/PERTUS Vaccine (Tdap, Adol/Adult) 0.5mL IM ONE (09:20)
[2024-01-26] MEDS: BENZOCAINE 20% SPRY 85 APPLN/85 GM CAN EXT PRN (09:20)
[2024-01-26] MEDS: IBUPROFEN 600 MG TAB PO PRN (13:33)
[2024-01-27 05:50] VITALS: O2SAT 98
--- NOTE | 2024-01-27 07:04 | Obstetrical Progress Note ---
Date of Service <Alonzo Hernandez DO - Last Filed: 01/27/24 07:49> January 27, 2024 Assessment & Plan <Alonzo Hernandez DO - Last Filed: 01/27/24 07:49> (1) Encounter for assessment: Plan 23 y/o PPD#1: Eating well, voiding well, ambulating well Vitals reviewed, WNL Pain well controlled with Motrin Routine post care - OOB, ambulation, diet progression as tolerated Will have 6 week follow up with Dr. Devine <Lucia Rhoades MD, FACOG - Last Filed: 01/27/24 07:56> (1) Encounter for assessment: Subjective <Alonzo Hernandez DO - Last Filed: 01/27/24 07:49> Ambulation: ambulating normally Voiding: no voiding problems Diet Tolerance:: regular diet Lochia:: Moderate Feeding Type:: breast feeding pain well controlled with Motrin Review of Systems -Denies fever or chills -Denies dyspnea, chest pain, or palpitations -Denies dysuria -Denies headache or changes in vision Physical Exam <Alonzo Hernandez DO - Last Filed: 01/27/24 07:49> General: Alert and oriented. No acute distress Cardiac: Regular rate and rhythm, no murmurs appreciated Respiratory: Lungs clear to auscultation bilaterally, No increased work of breathing Abdominal: Soft, non-tender, non-distended. Bowel sounds present. Uterus: Uterine fundus firm, palpable below umbilicus Extremities: No lower extremity edema, calves non-tender bilaterally Results & Data <Alonzo Hernandez DO - Last Filed: 01/27/24 07:49> Vital Signs (Past 12 Hours) Vital Signs Temp Pulse Resp BP Pulse Ox O2 Del Method 01/27/24 05:35 36.5 C 73 16 92/54 L 98 Room Air 01/26/24 23:50 36.6 C 67 18 95/60 L 99 Room Air 01/26/24 21:08 104/64 01/26/24 19:38 36.4 C L 62 18 91/54 L 98 Room Air Supervising Physician <Lucia Rhoades MD, FACOG - Last Filed: 01/27/24 07:56> Co-Signing Physician Notes Resident Physician Supervision Note: I was present with Dr. Hernandez during the history and exam. I discussed the case with the resident and agree with the findings and plan as documented in the note. Any exceptions or clarifications are listed here: stable, dc home, f/u 6wk pp, instructions reviwed. abd soft ff 2 down nt. ext nt calves. ppd#2, breast/rhpos/ri Documented By: Lucia Rhoades MD, FACOG Resident Activity Tracking <Alonzo Hernandez, DO - Last Filed: 01/27/24 07:49> Resident Involvement: Resident Care Provided Care Provided: OB Delivery
[2024-01-27 07:49] LABS: Hematocrit (blood only) 28.3 % (37.0-47.0); Hemoglobin 8.5 g/dl (12.0-16.0)
[2024-01-27 07:50] VITALS: BP 98/63; PULSE 66; RESP 18; TEMP 97.5
[2024-01-27] MEDS ORDERED: bisacodyL 5 MG TABEC PO SCH (20:00)
== END 2024-01-27 10:20 | disposition home or self-care (01) | DRG 807 ==
LOC: 4S1 20:55 → 4E2 01-26 08:31